=== PATIENT | male | born 2000 | race Caucasian/White ===

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

== ENCOUNTER → 2020-06-16 12:09 | Outpatient (CLI) | payer BC, SELFPAY ==
[2020-06-16 15:22] LABS: Hematocrit 50.3 % (40-54); Hemoglobin 16.3 g/dL (13.0-16.5); Mean Corp Hgb Conc 32.4 g/dL (32-36); Mean Corpuscular Volume 89.3 fL (80-94); Mean Platelet Vol. 10.6 fl (6.2-12.0); Platelet Count 198 K/mm3 (150-450); RBC Distribution Width CV 12.5 % (11.6-14.6); RBC Distribution Width SD 40.8 fl (35.1-43.9); Red Blood Count 5.63 M/mm3 (4.6-6.2); White Blood Count 5.7 K/mm3 (4.4-11.0)
[2020-06-16 15:37] LABS: ALB/GLOB Ratio 1.5 RATIO (0.9-2.4); AST(SGOT) 14 U/L (15-37); Alanine Aminotransfer ALT/SGPT 28 U/L (16-61); Albumin, Serum 4.3 g/dL (3.2-5.0); Alkaline Phosphatase 47 U/L (45-117); Anion Gap 4 (5-15); BUN 13 mg/dL (7-18); BUN/Creat Ratio 11.5 RATIO (10-20); Calcium,Total 9.4 mg/dL (8.5-10.1); Chloride 106 mmol/L (98-107); Creatinine, Serum 1.13 mg/dL (0.70-1.30); EST Glomerular Filtration Rate 88 mL/min (>60); Est Glom Filt Rate - Afr Amer 106 mL/min (>60); Globulin 2.9 g/dL (2.2-4.2); Glucose 82 mg/dL (74-106); Protein, Total 7.2 g/dL (6.4-8.2); Sodium Level 139 mmol/L (136-145)
[2020-06-16 15:39] LABS: Vitamin B12 450 pg/mL (211-911); Vitamin D,25 Hydroxy 25.3 ng/mL
== END ==
PROVIDERS: PCP Family Medicine; Visit Provider Family Medicine
DX: R10.13 Epigastric pain (principal); R53.83 Other fatigue
CPT/HCPCS: 36415; 80053; 82306; 82607; 85027

== ENCOUNTER → 2020-06-26 11:41 | Outpatient (CLI) | payer BC, SELFPAY ==
[2020-06-26 15:04] LABS: Erythrocyte Sedimentation Rate < 1 mm/hr (0-15)
[2020-06-26 15:30] LABS: Vitamin D,25 Hydroxy 24.5 ng/mL
[2020-06-26 15:56] LABS: CRP < 2.90 mg/L (0.0-3.0); Iron 139 ug/dL (65-175); Thyroid Stim Hormone (TSH) 0.83 uIU/mL (0.358-3.74)
[2020-06-30 20:07] LABS: Endomysial Antibody IgA Negative (Negative)
[2020-06-30 20:25] LABS: Deamidated Gliadin IgA 3 units (0-19); Deamidated Gliadin IgG 2 units (0-19); Immunoglobulin A 137 mg/dL (90-386); t-Transglutaminase IgA <2 U/mL (0-3)
== END ==
PROVIDERS: PCP Family Medicine; Visit Provider Family Medicine
DX: R63.4 Abnormal weight loss (principal); E55.9 Vitamin D deficiency, unspecified; R53.83 Other fatigue
CPT/HCPCS: 36415; 82306; 82784; 83516; 83540; 84443; 85652; 86140; 86255

== ENCOUNTER 2021-08-04 12:27 | Outpatient (CLI) | payer BC, SELFPAY ==
[2021-08-04 15:10] LABS: Absolute Lymphocyte Count 1.72 X10^3/uL (0.83-4.51); Basophil# 0.02 X10^3/uL; Basophil% 0.4 % (0-1); Eosinophil# 0.08 X10^3/uL; Eosinophils% 1.6 % (0-5); Hematocrit 50.6 % (40-54); Hemoglobin 16.5 g/dL (13.0-16.5); Lymphocyte # 1.72 X10^3/ul (0.83-4.51); Lymphocyte % 33.7 % (19-41); Mean Corp Hgb Conc 32.6 g/dL (32-36); Mean Corpuscular Hgb 28.7 pg (27.0-32.0); Mean Platelet Vol. 10.5 fl (6.2-12.0); Monocyte# 0.28 X10^3/uL; Monocyte% 5.5 % (0-10); NRBC Flagged by Analyzer 0 % (0-5); Neutrophil % 58.6 % (47-70); Platelet Count 224 K/mm3 (150-450); RBC Distribution Width CV 12.9 % (11.6-14.6); RBC Distribution Width SD 41.5 fl (35.1-43.9); Red Blood Count 5.75 M/mm3 (4.6-6.2); White Blood Count 5.1 K/mm3 (4.4-11.0)
[2021-08-04 15:24] LABS: ALB/GLOB Ratio 1.3 RATIO (0.9-2.4); AST(SGOT) 18 U/L (15-37); Alanine Aminotransfer ALT/SGPT 23 U/L (16-61); Albumin, Serum 4.3 g/dL (3.2-5.0); Alkaline Phosphatase 47 U/L (45-117); Anion Gap 6 (5-15); BUN 13 mg/dL (7-18); BUN/Creat Ratio 15.2 RATIO (10-20); Calcium,Total 9.6 mg/dL (8.5-10.1); Chloride 107 mmol/L (98-107); Creatinine, Serum 0.85 mg/dL (0.70-1.30); EST Glomerular Filtration Rate 120 mL/min (>60); Est Glom Filt Rate - Afr Amer 145 mL/min (>60); Globulin 3.2 g/dL (2.2-4.2); Glucose 84 mg/dL (74-106); Potassium 4.3 mmol/L (3.5-5.1); Protein, Total 7.5 g/dL (6.4-8.2); Sodium Level 140 mmol/L (136-145)
[2021-08-04 15:43] LABS: Erythrocyte Sedimentation Rate 3 mm/hr (0-20)
== END 2021-08-04 23:59 | disposition short-term general hospital (02) ==
LOC: MFPLAB 12:29
PROVIDERS: PCP Family Medicine; Referring Provider Family Medicine; Visit Provider Family Medicine
DX: K29.70 Gastritis, unspecified, without bleeding (principal)
CPT/HCPCS: 36415; 80053; 82784; 83516; 85025; 85652; 86255; 86677

== ENCOUNTER → 2021-11-25 | Outpatient (CLI) | payer BC, SELFPAY ==
[2021-11-25 15:10] LABS: Hematocrit 47.6 % (40-54); Hemoglobin 15.9 g/dL (13.0-16.5); Mean Corp Hgb Conc 33.4 g/dL (32-36); Mean Corpuscular Hgb 29.2 pg (27.0-32.0); Mean Corpuscular Volume 87.5 fL (80-94); Mean Platelet Vol. 10.2 fl (6.2-12.0); Platelet Count 193 K/mm3 (150-450); RBC Distribution Width CV 12.3 % (11.6-14.6); RBC Distribution Width SD 39.2 fl (35.1-43.9); Red Blood Count 5.44 M/mm3 (4.6-6.2); White Blood Count 5.1 K/mm3 (4.4-11.0)
[2021-11-25 15:36] LABS: ALB/GLOB Ratio 1.3 RATIO (0.9-2.4); AST(SGOT) 13 U/L (15-37); Alanine Aminotransfer ALT/SGPT 21 U/L (16-61); Albumin, Serum 3.9 g/dL (3.2-5.0); Alkaline Phosphatase 40 U/L (45-117); Anion Gap 3 (5-15); BUN 13 mg/dL (7-18); BUN/Creat Ratio 14.7 RATIO (10-20); Calcium,Total 8.5 mg/dL (8.5-10.1); Chloride 107 mmol/L (98-107); Creatinine, Serum 0.89 mg/dL (0.70-1.30); EST Glomerular Filtration Rate 115 mL/min (>60); Est Glom Filt Rate - Afr Amer 139 mL/min (>60); Glucose 71 mg/dL (74-106); Potassium 3.9 mmol/L (3.5-5.1); Protein, Total 6.9 g/dL (6.4-8.2); Sodium Level 139 mmol/L (136-145)
== END | disposition home or self-care (01) ==
LOC: MFPLAB 14:03
PROVIDERS: PCP Family Medicine; Referring Provider Family Medicine; Visit Provider Nurse Practitioner Family
DX: R42 Dizziness and giddiness (principal)
CPT/HCPCS: 36415; 80053; 85027

== ENCOUNTER → 2021-11-26 | Outpatient (CLI) | payer BC, SELFPAY ==
[2021-11-26 15:29] LABS: ALB/GLOB Ratio 1.2 RATIO (0.9-2.4); AST(SGOT) 12 U/L (15-37); Alanine Aminotransfer ALT/SGPT 23 U/L (16-61); Alkaline Phosphatase 43 U/L (45-117); Anion Gap 3 (5-15); BUN 16 mg/dL (7-18); BUN/Creat Ratio 15.8 RATIO (10-20); Chloride 108 mmol/L (98-107); Creatinine, Serum 1.01 mg/dL (0.70-1.30); EST Glomerular Filtration Rate 99 mL/min (>60); Est Glom Filt Rate - Afr Amer 119 mL/min (>60); Globulin 3.2 g/dL (2.2-4.2); Glucose 94 mg/dL (74-106); Potassium 3.8 mmol/L (3.5-5.1); Protein, Total 7.2 g/dL (6.4-8.2); Sodium Level 140 mmol/L (136-145)
== END | disposition home or self-care (01) ==
PROVIDERS: PCP Family Medicine; Referring Provider Family Medicine; Visit Provider Nurse Practitioner Family
DX: R17 Unspecified jaundice (principal)
CPT/HCPCS: 36415; 80053

== ENCOUNTER 2022-06-12 16:53 | Emergency (ER) | payer OTHER, BC, SELFPAY ==
[2022-06-12 16:53] VITALS: BP 155/93; PULSE 90; RESP 18; TEMP 36.2; O2SAT 99; BMI 23.6
--- NOTE | 2022-06-12 17:11 | EX.ED.GENINJ ---
HPI History of Present Illness Chief Complaint: Occup Expose Narrative Narrative: 21-year-old male who is otherwise healthy presenting with insulin needlestick which occurred at the [facility]. He states that he was intermittently poked with the insulin needle. He does not know if the inmate has any medical problems other than diabetes. He states that the nurse at the [facility] supposed to draw his blood work tomorrow. He does not have any pain. He is right-hand dominant. PFSH PFS Medical History Stomach ulcer Home Medications NK 06/12/22 [History Last Taken Unknown] Allergy/AdvReac Type Severity Reaction Status Date / Time No Known Allergies Allergy Verified 06/12/22 16:55 Surgical History History of appendectomy Social History Smoking Status: Current every day smoker tobacco type: e-cigarettes ROS ROS ED Constitutional Constitutional ED: Denies chills, fever(s) or sweats Eyes Eyes: Denies blurry vision or change in vision ENT ENT ED: Denies ear pain or sore throat Cardiovascular Cardiovascular: Denies chest pain, palpitations or racing heartbeat Respiratory/Chest Respiratory/Chest: Denies cough, dyspnea or sputum Gastrointestinal Gastrointestinal: Denies abdominal pain, constipation, diarrhea, nausea or vomiting Genitourinary Genitourinary ED: Denies dysuria, hematuria or urinary frequency Musculoskeletal Musculoskeletal: Denies arthralgias, myalgias or neck pain Integumentary Denies abscess, Abrasions or rash Neurologic Neurologic: Denies headache(s), paresthesias or weakness Psychiatric Psychiatric: Denies anxiety, depression, suicidal ideation or suicidal thoughts Endocrine Endocrinology: Denies polydipsia or polyuria EXAM Physical Exam Const Vital Signs: 06/12/22 16:53 Temperature 97.1 F L Temperature Source Temporal Pulse Rate 90 Respiratory Rate 18 Blood Pressure 155/93 H Blood Pressure Mean 113 Pulse Ox 99 Oxygen Delivery Method Room Air Positive well nourished General Appearance ED: NAD HEENT atraumatic Eyes PERRL and EOMs intact bilaterally Resp normal respiratory effort Auscultation: Negative for rales, rhonchi or wheezes Extremity normal to inspection Neuro oriented x3 and CN's II-XII intact bilaterally Sensorium / Orientation: alert Psych mental status grossly normal and thought process normal Skin no rashes or lesions noted and no wounds MDM MDM MDM Narrative Medical decision making narrative: Patient presenting with needlestick. Appropriate lab was drawn. First report of injury is filled out. Patient does not require any restrictions. Patient states that the nurse at the [facility] will draw the inmates blood tomorrow. Patient discharged stable condition. Impression: 1. Needlestick Discharge Plan Triage Chief Complaint: Occup Expose ED Provider: Ashwin Oliver Dx/Rx/DC Orders Prescriptions: No Action NK Primary Care Provider: Jacob Beltrán Referrals: Jacob Beltrán MD [Primary Care Provider] -
[2022-06-12 19:15] LABS: HIV - WCH Non-Reactive (Nonreactive); Hepatitis B Surface Antibody Non-Reactive; Hepatitis B Surface Antigen Non-Reactive (Nonreactive); Hepatitis C Antibody Non-Reactive (Nonreactive)
== END 2022-06-12 17:44 | disposition home or self-care (01) ==
LOC: ED 17:38
PROVIDERS: Emergency Provider Student in an Organized Health Care Education/Training Program; PCP Family Medicine; Visit Provider Student in an Organized Health Care Education/Training Program
DX: Z77.21 Contact with and (suspected) exposure to potentially hazardous body fluids (principal); F17.290 Nicotine dependence, other tobacco product, uncomplicated; W46.1XXA Contact with contaminated hypodermic needle, initial encounter
CPT/HCPCS: 86703; 86706; 86803; 87340; 99282

== ENCOUNTER → 2023-02-24 | Outpatient (CLI) | payer BC, SELFPAY ==
--- NOTE | 2023-02-24 15:00 | RAD_ITS ---
INDICATION: pain EXAMINATION/TECHNIQUE: X-RAY - LEFT XR Knee Complete 4 Views COMPARISON: FINDINGS: SOFT TISSUES: No soft tissue swelling or gas. No radiopaque foreign body. BONES/JOINTS: No acute fracture or subluxation.. Normal alignment. Preservation of the joint space.. No sclerotic or destructive changes observed. RAD/Knee 4 or More Views IMPRESSION: Negative. Electronically Signed: Sriram Sargent DO at 23:50 EDT ,
== END | disposition home or self-care (01) ==
LOC: MTRAD 14:52
PROVIDERS: PCP Family Medicine; Visit Provider Family Medicine
DX: M25.562 Pain in left knee (principal)
CPT/HCPCS: 73564

== ENCOUNTER 2023-06-05 18:29 | Emergency (ER) | payer OTHER, SELFPAY ==
[2023-06-05 18:31] VITALS: BP 125/94; PULSE 118; RESP 18; TEMP 37; O2SAT 98; BMI 24.6
--- NOTE | 2023-06-05 19:10 | RAD_ITS ---
EXAM: XR LEFT KNEE COMPLETE, 4 OR MORE VIEWS CLINICAL INDICATION: Trauma TECHNIQUE: Four or more views of the left knee. COMPARISON: No relevant prior studies available. FINDINGS: BONES/JOINTS: Unremarkable. No acute fracture. No subluxation. Normal alignment. Preservation of the joint space. No sclerotic or destructive changes observed. SOFT TISSUES: Unremarkable. No soft tissue swelling or gas. No radiopaque foreign body. RAD/Knee 4 or More Views IMPRESSION: Negative left knee x-rays. Electronically Signed: Jorge Morales MD at 19:38 EST ,
--- NOTE | 2023-06-05 20:36 | ED.VIS.LOWEX ---
HPI History of Present Illness Chief Complaint: Lower Extremity Injury Informant: patient Narrative Narrative: Patient presents with left knee pain. Patient has been having some problems with his left knee. He has a meniscal tear in the anterior lateral aspect of the left knee. An MRI. He had a recent cortisone injection and has follow-up with orthopedics in the next week or 2. 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 She crossed her legs in front of his and then rotated his left leg inward. He felt a pop in the knee and has increased pain. It is in the same area that he has been having pain but it is increased. No other injury. [facility] Medical History Stomach ulcer Home Medications NK 06/12/22 [History Last Taken Unknown] Allergy/AdvReac Type Severity Reaction Status Date / Time No Known Allergies Allergy Verified 06/05/23 18:30 Surgical History History of appendectomy Social History Smoking Status: Current every day smoker tobacco type: e-cigarettes ROS ROS ED Constitutional Constitutional ED: Denies chills or fever(s) Cardiovascular Cardiovascular: Denies chest pain Respiratory/Chest Respiratory/Chest: Denies cough Gastrointestinal Gastrointestinal: Denies nausea or vomiting Musculoskeletal Musculoskeletal: Reports arthralgias Neurologic Neurologic: Denies paresthesias or weakness Hematologic/Lymphatic Hematologic/Lymphatic: Denies easy bleeding or easy bruising Allergic/Immunologic Allergic/Immunologic ED: Denies urticaria EXAM Physical Exam Narrative Exam Narrative: General: Patient awake alert no acute distress. HEENT shows no sign of trauma Cardiorespiratory shows easy unlabored breathing. Extremities: Left knee does not have an effusion. There is some anterior lateral joint line tenderness though. It is stable to varus valgus as well as drawer exam. It is not red. There are no lesions. Const Vital Signs: 06/05/23 18:31 Temperature 98.6 F Temperature Source Temporal Pulse Rate 118 H Respiratory Rate 18 Blood Pressure 125/94 H Blood Pressure Mean 104 Pulse Ox 98 Oxygen Delivery Method Room Air MDM MDM MDM Narrative Medical decision making narrative: My independent interpretation of the patient's 4 view x-ray of the left knee shows no acute process and final reading is negative left knee x-rays. However, this patient does have a known meniscal injury with likely repeat irritation. I do not think he should be using this significantly. He has follow-up with orthopedics. They are considering surgery for this area. He is going to call his orthopedic surgeon on Tuesday so he can get in sooner. We will have him on light duty until then to avoid doing further injury to this knee. Radiography Diagnostic Testing: Clinical Impression(s) from Imaging Studies Knee X-Ray 06/05/23 19:10 IMPRESSION: Negative left knee x-rays. Electronically Signed: Jorge Morales MD at 19:38 EST , Discharge Plan Triage Chief Complaint: Lower Extremity Injury ED Provider: Ladarius Nicole Dx/Rx/DC Orders Clinical Impression: Acute internal derangement of left knee, Tear of lateral meniscus of left knee Instructions: ED Meniscal Injury Knee Poss Prescriptions: No Action NK Stand Alone Forms: Work Status Form Primary Care Provider: Jacob Beltrán Referrals: Jacob Beltrán MD [Primary Care Provider] - As Needed Activity Restrictions/Additional Instructions: Follow-up with your orthopedic surgeon as soon as possible. Call Tuesday for an appointment. Disposition Disposition: Home, Self Care
--- NOTE | 2023-06-05 20:46 | ED.RN ---
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
== END 2023-06-05 20:47 | disposition home or self-care (01) ==
PROVIDERS: Emergency Provider Emergency Medicine; PCP Family Medicine; Visit Provider Emergency Medicine
DX: M23.92 Unspecified internal derangement of left knee (principal); S83.282A Other tear of lateral meniscus, current injury, left knee, initial encounter; F17.290 Nicotine dependence, other tobacco product, uncomplicated; X58.XXXA Exposure to other specified factors, initial encounter
CPT/HCPCS: 73564; 99282

== ENCOUNTER 2023-07-21 11:19 | Day surgery (SDC) | payer OTHER, BC, SELFPAY ==
[2023-07-21] VITALS (8 sets, daily range): BP systolic 106–123; BP diastolic 71–87; PULSE 70–91; RESP 16; TEMP 36.6–36.8; O2SAT 97–100; BMI 24.5
[2023-07-21] MEDS: Lactated Ringers 1,000 ML 15 ML IV (11:44)
--- OUTSIDE RECORDS SUMMARY | 2023-07-21 11:58 | XMS RPT_ITS | CCD ---
Author Name Unknown Address [address] [place] [address] Organization [facility] Care Team Providers Care Director Sales Support Name Role Phone LAURA KLINE Unavailable Unavailable MAREN HAMMER Unavailable Unavailable MAREN HAMMER Unavailable Unavailable ERIKA, DR CHIP Snyder Admitting Unavaila ble ERIKA, DR CHIP Snyder Primary Care Unavaila ble ERIKA, DR CHIP Snyder Attending Unavaila ble ERIKA, DR CHIP Snyder Admitting Unavaila ble ERIKA, DR CHIP Snyder Primary Care Unavaila ble ERIKA, DR CHIP Snyder Attending Unavaila ble ERIKA, DR CHIP Snyder Primary Care Unavaila ble ERIKA, DR CHIP Snyder Attending Unavaila ble ERIKA, DR CHIP Snyder Admitting Unavaila ble NON STAFF Primary Care Provider UnavailMD Maciel Calhoun Emergency Provider Maciel Tello Attending Unavailable Maciel Tello Admitting Unavailable NON STAFF Primary Care Unavailable MAME BARDALES, DR LAINEZ Primary Care Physician MAME BARDALES, DR LAINEZ Primary Care Unavailable [facility] DO Attending Unavailable Manasa Vilchis Primary Care Provider MANASA VILCHIS Primary Care Unavailable MANASA VILCHIS Primary Care Unavailable MANASA VILCHIS Primary Care Unavailable Medications Current Medications Medication Drug Class(es) Dates Sig (Normalized) Sig (Original) benzonatate 100 mg oral capsule (1 source) Non-narcotic Antitussive Start: 07-07-2023 End: 07-14-2023 take 1 capsule by mouth every eight hours as needed benzonatate (TESSALON PERLE) 100 mg capsule Take 1 capsule by mouth three times a day as needed for cough for up to 7 days. 21 capsule 0 07/07/2023 07/14/2023 Active Completed/Discontinued Medications Medication Drug Class(es) Dates Sig (Normalized) Sig (Original) [id number] 200 actuat albuterol 0.09 mg/actuat metered dose inhaler (2 sources) beta2-Adrenergic Agonist Start: 07-07-2023 take 2 puff(s) by inhalation every six hours as needed albuterol HFA (PROAIR HFA) 90 mcg/actuation inhaler Inhale 2 Puffs as instructed every 6 hours as needed. 8.5 g 0 07/07/2023 Active Problems Active Problems Problem Classification Problem Date Documented Da te Episodic/Chronic Abdominal pain (1 source) Abdominal pain; Translations: [Unspecified abdominal pain] Onset: 10-09-2022 Episodic Asthma (1 source) Asthma 2015 Chronic Conditions associated with dizziness or vertigo (1 source) Dizziness; Translations: [Dizziness and giddiness] 11-22-2021 Episodic Conditions associated with dizziness or vertigo (1 source) Conditions associated with dizziness or vertigo; Translations: [R42 - Dizziness and giddiness] Onset: 11-22-2021 Nausea and vomiting (1 source) Nausea and vomiting; Translations: [Nausea with vomiting, unspecified] Onset: 10-09-2022 Episodic Other nervous system disorders (1 source) Paresthesia; Translations: [Paresthesia of skin] 11-22-2021 Episodic Other upper respiratory infections (2 sources) Viral upper respiratory tract infection; Translations: [Acute upper respiratory infection, unspecified] 07-05-2023 Episodic Past or Other Problems Problem Classification Problem Date Documented Da te Episodic/Chronic Other and unspecified benign neoplasm (4 sources) Benign tumor of head and neck; Translations: [Other benign neoplasm of skin of scalp and neck] Onset: 01-26-2006 01-26-2006 Episodic Results Test Name Value Interpretation Reference Range Facil ity Vital Signs Date Time Vital Sign Value Performing Clinician Facility 07-07-2023 09:58-0500 Body temperature 98.2 [degF] Peter Flowers APRN.CNP Work Phone: [facility] 07-07-2023 09:58-0500 Body weight 72.67 kg Peter Flowers APRN.CNP Work Phone: [facility] 07-07-2023 09:58-0500 Diastolic blood pressure 82 mm[Hg] Peter Pendlebury LOAD OUT SUPERVISOR.[employer] Work Phone: [facility] 07-07-2023 09:58-0500 Heart rate 86 /min Peter Pendlebury LOAD OUT SUPERVISOR.[employer] Work Phone: [facility] 07-07-2023 09:58-0500 Respiratory rate 16 /min Peter Pendlebury LOAD OUT SUPERVISOR.[employer] Work Phone: [facility] 07-07-2023 09:58-0500 SaO2% (BldA) [Mass fraction] 97 % [facility].[employer] Work Phone: [facility] 07-07-2023 09:58-0500 Systolic blood pressure 128 mm[Hg] Peter Pendlebury LOAD OUT SUPERVISOR.[employer] Work Phone: [facility] 07-05-2023 12:06-0500 Body temperature 98.8 [degF] Ivette Athy PA-C Work Phone: [facility] 07-05-2023 12:06-0500 Body weight 73.03 kg Ivette Athy PA-C Work Phone: [facility] 07-05-2023 12:06-0500 Diastolic blood pressure 64 mm[Hg] Ivette Athy PA-C Work Phone: [facility] 07-05-2023 12:06-0500 Heart rate 102 /min Ivette Athy PA-C Work Phone: [facility] 07-05-2023 12:06-0500 Respiratory rate 18 /min Ivette Athy PA-C Work Phone: [facility] 07-05-2023 12:06-0500 SaO2% (BldA) [Mass fraction] 96 % Ivette Athy PA-C Work Phone: [facility] 07-05-2023 12:06-0500 Systolic blood pressure 118 mm[Hg] Ivette Athy PA-C Work Phone: [facility] 10-09-2022 01:08-0400 Diastolic Blood Pressure Non-Invasive 62 1 MAREN SWEENEYT DO [facility] 10-09-2022 01:08-0400 Heart rate 72 /min MAREN SWEENEYT DO [facility] 10-09-2022 01:08-0400 Respiratory rate 16 /min MAREN SWEENEYT DO [facility] 10-09-2022 01:08-0400 Systolic Blood Pressure Non-Invasive 110 1 MAREN SWEENEYT DO [facility] 10-08-2022 23:01-0400 Body temperature 98.78 [degF] MAREN SWEENEYT DO [facility] 10-08-2022 23:01-0400 Diastolic Blood Pressure Non-Invasive 61 1 MAREN SWEENEYT DO [facility] 10-08-2022 23:01-0400 Heart rate 112 /min MAREN DANIELS DO [facility] 10-08-2022 23:01-0400 Respiratory rate 18 /min MAREN DANIELS DO [facility] 10-08-2022 23:01-0400 Systolic Blood Pressure Non-Invasive 105 1 MAREN DANIELS DO [facility] 11-22-2021 17:00-0400 Diastolic blood pressure 61 mm[Hg] [facility] 11-22-2021 17:00-0400 Heart rate 81 /min [facility] 11-22-2021 17:00-0400 Respiratory rate 20 /min [facility] 11-22-2021 17:00-0400 SaO2% (BldA) [Mass fraction] 100 % [facility] 11-22-2021 17:00-0400 Systolic blood pressure 106 mm[Hg] [facility] 11-22-2021 14:42-0400 Body height 172.72 cm [facility] 11-22-2021 14:42-0400 Body mass index (BMI) [Ratio] 23.4 kg/m2 [facility] 11-22-2021 14:42-0400 Body temperature 97.9 [degF] [facility] 11-22-2021 14:42-0400 Body weight 69.85 kg [facility] Encounters Encounter Date Encounter Type Care Provider Facility Start: 07-07-2023 End: 07-07-2023 ambulatory MANASA VILCHIS Facility:[facility] Start: 07-07-2023 End: 07-07-2023 Office outpatient visit 15 minutes Peter Flowers APRN.[employer] Work Phone: [facility] Procedures Date Procedure Procedure Detail Performing Clinician Start: 07-05-2023 STREP A MOLECULAR (POC) [facility] Provider Start: 11-22-2021 CT of head without contrast Start: 11-22-2021 Plain chest X-ray Appendectomy MAREN Catherine DO None (qualifier value) SEDRICK DANIELS DO Plan of Treatment Date Care Activity Detail Author Start: 08-07-2029 Urine microalbumin profile DTaP,Tdap,Td Vaccine (3 - Td or Tdap) [facility] Start: 03-25-2023 Covid-19 Vaccine ( season) Covid-19 Vaccine ( season) [facility] Start: 03-25-2023 Influenza vaccination [facility] Start: 07-25-2022 DEPRESSION ASSESSMENT DEPRESSION ASSESSMENT [facility] Start: 01-20-2021 COVID-19 VACCINE (3 - Pfizer series) COVID-19 VACCINE (3 - Pfizer series) [facility] Start: 2019 Urine microalbumin profile DTAP,TDAP,TD (1 - Tdap) [facility] Start: 2018 HEPATITIS C SCREENING HEPATITIS C SCREENING [facility] Start: 2018 Hepatitis C screening Hepatitis C Screening [facility] Start: 2018 HIV SCREENING HIV SCREENING [facility] Start: 2018 HIV screening HIV Screening [facility] Start: 03-21-2018 HPV Vaccine (2 - Male 3-dose series) HPV Vaccine (2 - Male 3-dose series) [facility] Start: 2016 Meningococcal B Vaccine: Consider Based On Risk (1 of 2 - Patient Seeks Protection) Meningococcal B Vaccine: Consider Based On Risk (1 of 2 - Patient Seeks Protection) [facility] Start: 2016 MENINGOCOCCAL B: Consider based on risk (1 of 2 - Patient Seeks Protection) MENINGOCOCCAL B: Consider based on risk (1 of 2 - Patient Seeks Protection) [facility] Start: 2014 PEDS TO ADULT TRANSITION ANNUAL ASSESSMENT PEDS TO ADULT TRANSITION ANNUAL ASSESSMENT [facility] Start: 2012 PEDS TO ADULT TRANSITION INITIAL DISCUSSION PEDS TO ADULT TRANSITION INITIAL DISCUSSION [facility] Start: 2009 HPV VACCINE (1 - Male 2-dose series) HPV VACCINE (1 - Male 2-dose series) [facility] Start: 2006 PNEUMOCOCCAL (1 - PCV) PNEUMOCOCCAL (1 - PCV) [facility] Start: 2006 Pneumococcal vaccination Pneumococcal Vaccine (1 - PCV) [facility] Start: 2000 HEPATITIS B (1 of 3 - 3-dose series) HEPATITIS B (1 of 3 - 3-dose series) [facility] Start: 2000 Hepatitis B Vaccine (1 of 3 - 3-dose series) Hepatitis B Vaccine (1 of 3 - 3-dose series) [facility] COVID & INFLUENZA A/ B & RSV NAAT, ROUTINE COVID & INFLUENZA A/B & RSV NAAT, ROUTINE Microbiology Routine Viral URI with cough 07/05/2023 1:00 PM EST [facility] Work Phone: Patient Education Paresthesia (D C) Dizziness, Adult ED [facility] Work Phone: Patient referral [facility] Work Phone: Immunizations Immunization Date Immunization Notes Care Provider Fa cility 05-17-2019 influenza virus vacc ine, unspecified formulation Ivette Farah PA-C Work Phone: [facility] Payers Date Payer Category Payer Self-pay [id number] 2020 Unknown [id number] 2020 Unknown [id number] 2000 Unknown [id number] 2000 Unknown [id number] 2000 Unknown [id number] 2000 Unknown [id number] Unknown [id number] Unknown [id number] Social History Date Type Detail Facility Start: 11-22-2021 Tobacco smoking stat [facility] Smoker (finding) [facility] Start: 2000 Sex Assigned At Male F [facility] Start: 11-26-2020 Tobacco smoking status Never s moked tobacco (finding) [facility] Sex Assigned At Sex [facility] Start: 03-28-2023 [facility] Start: 03-28-2023 Tobacco use and exposure User of smokeless tobacco [facility] Start: 03-28-2023 End: 07-07-2023 Alcohol intake Current non-drinker of alcohol (finding) [facility] Start: 06-29-2020 End: 03-28-2023 History of Social function [facility] Start: 06-29-2020 End: 03-28-2023 Tobacco use panel [facility] National Score (1-100), lower number is lower risk Not on file [facility] Start: 2000 Sex Assigned At Not on file C [facility] Functional Status Date Assessment Result Facility 10-09-2022 Functional Status Assistive Device None A [facility] Clinical Notes 10-09-2022 to 07-07-2023 Peter Flowers APRN.[employer] - 07/07/2023 10:45 AM Peter Torres APRN.CNP - 07/07/2023 10:25 AM ESTTelephone Encounter - Marge Thomas LPN - 07/06/2023 7:30 AM EST Note Date & Type Note Facility 07-07-2023 Note HNO ID: [id number] Author: Peter Flowers APRN.[employer] Service: ? Author Type: Nurse Practitioner Type: Progress Notes Filed: 07/07/2023 10:46 AM Note Text: Subjective HPI Nontoxic-appearing male presents to urgent care with chief complaint of upper respiratory tract like infection. Duration of symptoms 4 days. Associated symptoms sore throat, nasal congestion, nasal discharge and nonproductive cough. Some shortness of breath only with coughing. Was seen here 2 days ago. Negative influenza COVID test. Presents today due to persistent symptoms. Has used OTC medications to help some. Or home remedies for symptom management. Patient states recent sick contacts with similar signs and symptoms. Patient denies any productive cough, fever, chest pain, shortness of breath, pleuritic pain, rash, abdominal pain, nausea, vomiting or change in bowel or bladder habit. Past medical history prescription medication use allergies reviewed. .Patient presents with: Cough: Cough, congestion and SOB x 2 days-started with sx 4 days ago History reviewed. No pertinent past medical history. PAST SURGICAL HISTORY Procedure Laterality Date MYRINGOTOMY ASPIRAND/EUSTACHIAN TUBE NFLTJ ANES Myringotomy/tubes TONSILLECTOMY PRIMARY/SECONDARY Tonsillectomy ALLERGIES Patient has no known allergies. MEDICATIONS sucralfate (CARAFATE) 1 gram tablet pantoprazole sodium (PROTONIX ORAL) Take by mouth. benzonatate (TESSALON PERLE) 100 mg capsule Take 1 capsule by mouth three times a day as needed for cough for up to 7 days. albuterol HFA (PROAIR HFA) 90 mcg/actuation inhaler Inhale 2 Puffs as instructed every 6 hours as needed. guaiFENesin (MUCINEX) 600 mg 12 hr tablet Take 1 tablet by mouth two times a day as needed for cold/allergy symptoms (cough) for up to 7 days. History reviewed. No pertinent family history. Social History Tobacco Use Smoking status: Light Smoker Smokeless tobacco: Current Vaping Use Vaping Use: Never used Substance Use Topics Alcohol use: No Drug use: No BP 128/82 Pulse 86 Temp 36.8 ?C (98.2 ?F) (Tympanic) Resp 16 Wt 72.7 kg (160 lb 3.2 oz) SpO2 97% Review of Systems Constitutional: Positive for malaise/fatigue. Negative for chills and fever. HENT: Positive for congestion, sinus pain and sore throat. Negative for ear discharge and ear pain. Eyes: Negative for blurred vision, pain, discharge and redness. Respiratory: Positive for cough. Negative for hemoptysis, sputum production, shortness of breath, wheezing and stridor. Cardiovascular: Negative for chest pain. Gastrointestinal: Negative for abdominal pain, diarrhea, nausea and vomiting. Musculoskeletal: Positive for myalgias. Skin: Negative for itching and rash. Neurological: Positive for headaches. Negative for dizziness. Objective Physical Exam Constitutional: General: He is not in acute distress. Appearance: He is not diaphoretic. HENT: Head: Normocephalic. Jaw: No trismus, tenderness, swelling or pain on movement. Nose: Congestion present. Mouth/Throat: Mouth: Mucous membranes are moist. Pharynx: Oropharynx is clear. Uvula midline. No pharyngeal swelling, oropharyngeal exudate, posterior oropharyngeal erythema or uvula swelling. Eyes: Conjunctiva/sclera: Conjunctivae normal. Pupils: Pupils are equal, round, and reactive to light. Cardiovascular: Rate and Rhythm: Normal rate and regular rhythm. Heart sounds: Normal heart sounds. Pulmonary: Effort: Pulmonary effort is normal. No tachypnea, accessory muscle usage or respiratory distress. Breath sounds: Normal breath sounds. No stridor. No wheezing, rhonchi or rales. Abdominal: General: There is no distension. Palpations: Abdomen is soft. Tenderness: There is no abdominal tenderness. There is no guarding or rebound. Musculoskeletal: Cervical back: Normal range of motion and neck supple. No edema, erythema, rigidity or tenderness. No pain with movement. Normal range of motion. Lymphadenopathy: Cervical: No cervical adenopathy. Skin: General: Skin is warm and dry. Neurological: Mental Status: He is alert and oriented to person, place, and time. ASSESSMENT/PLAN: 1. Viral URI with cough - ICD9: 465.9, ICD10: J06.9 - Discussed viral etiology and rationale for treatment. - Symptomatic treatment with prn analgesia - Supportive care with fluids and rest No evidence of bacterial infection noted. Patient was educated on supportive therapies. Patient will follow up with primary care provider as needed. Patient was instructed to immediately proceed to emergency room for any new, worsening, or symptoms lasting longer than anticipated. The patient's clinical presentation is otherwise unremarkable at this time. Based on exam and clinical finding, the patient is stable for discharge. Plan of care was discussed with patient. Patient verbalizes understanding and agrees to plan of care. This note was (more content not included)... [facility] 07-07-2023 Note HNO ID: [id number] Author: Peter Flowers APRN.[employer] Service: ? Author Type: Nurse Practitioner Type: Progress Notes Filed: 07/07/2023 10:46 AM Note Text: Subjective HPI Nontoxic-appearing male presents to urgent care with chief complaint of upper respiratory tract like infection. Duration of symptoms 4 days. Associated symptoms sore throat, nasal congestion, nasal discharge and nonproductive cough. Some shortness of breath only with coughing. Was seen here 2 days ago. Negative influenza COVID test. Presents today due to persistent symptoms. Has used OTC medications to help some. Or home remedies for symptom management. Patient states recent sick contacts with similar signs and symptoms. Patient denies any productive cough, fever, chest pain, shortness of breath, pleuritic pain, rash, abdominal pain, nausea, vomiting or change in bowel or bladder habit. Past medical history prescription medication use allergies reviewed. .Patient presents with: Cough: Cough, congestion and SOB x 2 days-started with sx 4 days ago History reviewed. No pertinent past medical history. PAST SURGICAL HISTORY Procedure Laterality Date MYRINGOTOMY ASPIRAND/EUSTACHIAN TUBE NFLTJ ANES Myringotomy/tubes TONSILLECTOMY PRIMARY/SECONDARY Tonsillectomy ALLERGIES Patient has no known allergies. MEDICATIONS sucralfate (CARAFATE) 1 gram tablet pantoprazole sodium (PROTONIX ORAL) Take by mouth. History reviewed. No pertinent family history. Social History Tobacco Use Smoking status: Light Smoker Smokeless tobacco: Current Vaping Use Vaping Use: Never used Substance Use Topics Alcohol use: No Drug use: No BP 128/82 Pulse 86 Temp 36.8 ?C (98.2 ?F) (Tympanic) Resp 16 Wt 72.7 kg (160 lb 3.2 oz) SpO2 97% Review of Systems Constitutional: Positive for malaise/fatigue. Negative for chills and fever. HENT: Positive for congestion, sinus pain and sore throat. Negative for ear discharge and ear pain. Eyes: Negative for blurred vision, pain, discharge and redness. Respiratory: Positive for cough. Negative for hemoptysis, sputum production, shortness of breath, wheezing and stridor. Cardiovascular: Negative for chest pain. Gastrointestinal: Negative for abdominal pain, diarrhea, nausea and vomiting. Musculoskeletal: Positive for myalgias. Skin: Negative for itching and rash. Neurological: Positive for headaches. Negative for dizziness. Objective Physical Exam Constitutional: General: He is not in acute distress. Appearance: He is not diaphoretic. HENT: Head: Normocephalic. Jaw: No trismus, tenderness, swelling or pain on movement. Nose: Congestion present. Mouth/Throat: Mouth: Mucous membranes are moist. Pharynx: Oropharynx is clear. Uvula midline. No pharyngeal swelling, oropharyngeal exudate, posterior oropharyngeal erythema or uvula swelling. Eyes: Conjunctiva/sclera: Conjunctivae normal. Pupils: Pupils are equal, round, and reactive to light. Cardiovascular: Rate and Rhythm: Normal rate and regular rhythm. Heart sounds: Normal heart sounds. Pulmonary: Effort: Pulmonary effort is normal. No tachypnea, accessory muscle usage or respiratory distress. Breath sounds: Normal breath sounds. No stridor. No wheezing, rhonchi or rales. Abdominal: General: There is no distension. Palpations: Abdomen is soft. Tenderness: There is no abdominal tenderness. There is no guarding or rebound. Musculoskeletal: Cervical back: Normal range of motion and neck supple. No edema, erythema, rigidity or tenderness. No pain with movement. Normal range of motion. Lymphadenopathy: Cervical: No cervical adenopathy. Skin: General: Skin is warm and dry. Neurological: Mental Status: He is alert and oriented to person, place, and time. ASSESSMENT/PLAN: 1. Viral URI with cough - ICD9: 465.9, ICD10: J06.9 - Discussed viral etiology and rationale for treatment. - Symptomatic treatment with prn analgesia - Supportive care with fluids and rest Patient was educated on supportive therapies. Patient will follow up with primary care provider as needed. Patient was instructed to immediately proceed to emergency room for any new, worsening, or symptoms lasting longer than anticipated. The patient's clinical presentation is otherwise unremarkable at this time. Based on exam and clinical finding, the patient is stable for discharge. Plan of care was discussed with patient. Patient verbalizes understanding and agrees to plan of care. This note was generated using milog software. It may contain errors in wording, punctuation, or spelling. Peter Flowers APRN.[facility] 07-07-2023 History of Presen t illness Narrative Subjective HPI Nontoxic-appearing male presents to urgent care with chief complaint of upper respiratory tract like infection. Duration of symptoms 4 days. Associated symptoms sore throat, nasal congestion, nasal discharge and nonproductive cough. Some shortness of breath only with coughing. Was seen here 2 days ago. Negative influenza COVID test. Presents today due to persistent symptoms. Has used OTC medications to help some. Or home remedies for symptom management. Patient states recent sick contacts with similar signs and symptoms. Patient denies any productive cough, fever, chest pain, shortness of breath, pleuritic pain, rash, abdominal pain, nausea, vomiting or change in bowel or bladder habit. Past medical history prescription medication use allergies reviewed. .Patient presents with: Cough: Cough, congestion and SOB x 2 days-started with sx 4 days ago History reviewed. No pertinent past medical history. PAST SURGICAL HISTORY Procedure Laterality Date MYRINGOTOMY ASPIR&/EUSTACHIAN TUBE NFLTJ ANES Myringotomy/tubes TONSILLECTOMY PRIMARY/SECONDARY <AGE 12 Tonsillectomy ALLERGIES Patient has no known allergies. MEDICATIONS sucralfate (CARAFATE) 1 gram tablet pantoprazole sodium (PROTONIX ORAL) Take by mouth. benzonatate (TESSALON PERLE) 100 mg capsule Take 1 capsule by mouth three times a day as needed for cough for up to 7 days. albuterol HFA (PROAIR HFA) 90 mcg/actuation inhaler Inhale 2 Puffs as instructed every 6 hours as needed. guaiFENesin (MUCINEX) 600 mg 12 hr tablet Take 1 tablet by mouth two times a day as needed for cold/allergy symptoms (cough) for up to 7 days. History reviewed. No pertinent family history. Social History Tobacco Use Smoking status: Light Smoker Smokeless tobacco: Current Vaping Use Vaping Use: Never used Substance Use Topics Alcohol use: No Drug use: No BP 128/82 Pulse 86 Temp 36.8 C (98.2 F) (Tympanic) Resp 16 Wt 72.7 kg (160 lb 3.2 oz) SpO2 97% Review of Systems Constitutional: Positive for malaise/fatigue. Negative for chills and fever. HENT: Positive for congestion, sinus pain and sore throat. Negative for ear discharge and ear pain. Eyes: Negative for blurred vision, pain, discharge and redness. Respiratory: Positive for cough. Negative for hemoptysis, sputum production, shortness of breath, wheezing and stridor. Cardiovascular: Negative for chest pain. Gastrointestinal: Negative for abdominal pain, diarrhea, nausea and vomiting. Musculoskeletal: Positive for myalgias. Skin: Negative for itching and rash. Neurological: Positive for headaches. Negative for dizziness. Objective Physical Exam Constitutional: General: He is not in acute distress. Appearance: He is not diaphoretic. HENT: Head: Normocephalic. Jaw: No trismus, tenderness, swelling or pain on movement. Nose: Congestion present. Mouth/Throat: Mouth: Mucous membranes are moist. Pharynx: Oropharynx is clear. Uvula midline. No pharyngeal swelling, oropharyngeal exudate, posterior oropharyngeal erythema or uvula swelling. Eyes: Conjunctiva/sclera: Conjunctivae normal. Pupils: Pupils are equal, round, and reactive to light. Cardiovascular: Rate and Rhythm: Normal rate and regular rhythm. Heart sounds: Normal heart sounds. Pulmonary: Effort: Pulmonary effort is normal. No tachypnea, accessory muscle usage or respiratory distress. Breath sounds: Normal breath sounds. No stridor. No wheezing, rhonchi or rales. Abdominal: General: There is no distension. Palpations: Abdomen is soft. Tenderness: There is no abdominal tenderness. There is no guarding or rebound. Musculoskeletal: Cervical back: Normal range of motion and neck supple. No edema, erythema, rigidity or tenderness. No pain with movement. Normal range of motion. Lymphadenopathy: Cervical: No cervical adenopathy. Skin: General: Skin is warm and dry. Neurological: Mental Status: He is alert and oriented to person, place, and time. ASSESSMENT/PLAN: 1. Viral URI with cough - ICD9: 465.9, ICD10: J06.9 - Discussed viral etiology and rationale for treatment. - Symptomatic treatment with prn analgesia - Supportive care with fluids and rest No evidence of bacterial infection noted. Patient was educated on supportive therapies. Patient will follow up with primary care provider as needed. Patient was instructed to immediately proceed to emergency room for any new, worsening, or symptoms lasting longer than anticipated. The patient's clinical presentation is otherwise unremarkable at this time. Based on exam and clinical finding, the patient is stable for discharge. Plan of care was discussed with patient. Patient verbalizes understanding and agrees to plan of care. This note was generated using milog software. It may contain errors in wording, punctuation, or spelling. Peter Flowers APRN.[employer] Subjective HPI Nontoxic-appearing male presents to urgent care with chief complaint of upper respiratory tract like infection. Duration of symptoms 4 days. Associated symptoms sore throat, nasal congestion, nasal discharge and nonproductive cough. Some shortness of breath only with coughing. Was seen here 2 days ago. Negative influenza COVID test. Presents today due to persistent symptoms. Has used OTC medications to help some. Or home remedies for symptom management. Patient states recent sick contacts with similar signs and symptoms. Patient denies any productive cough, fever, chest pain, shortness of breath, pleuritic pain, rash, abdominal pain, nausea, vomiting or change in bowel or bladder habit. Past medical history prescription medication use allergies reviewed. .Patient presents with: Cough: Cough, congestion and SOB x 2 days-started with sx 4 days ago History reviewed. No pertinent past medical history. PAST SURGICAL HISTORY Procedure Laterality Date MYRINGOTOMY ASPIR&/EUSTACHIAN TUBE NFLTJ ANES Myringotomy/tubes TONSILLECTOMY PRIMARY/SECONDARY <AGE 12 Tonsillectomy ALLERGIES Patient has no known allergies. MEDICATIONS sucralfate (CARAFATE) 1 gram tablet pantoprazole sodium (PROTONIX ORAL) Take by mouth. History reviewed. No pertinent family history. Social History Tobacco Use Smoking status: Light Smoker Smokeless tobacco: Current Vaping Use Vaping Use: Never used Substance Use Topics Alcohol use: No Drug use: No BP 128/82 Pulse 86 Temp 36.8 C (98.2 F) (Tympanic) Resp 16 Wt 72.7 kg (160 lb 3.2 oz) SpO2 97% Review of Systems Constitutional: Positive for malaise/fatigue. Negative for chills and fever. HENT: Positive for congestion, sinus pain and sore throat. Negative for ear discharge and ear pain. Eyes: Negative for blurred vision, pain, discharge and redness. Respiratory: Positive for cough. Negative for hemoptysis, sputum production, shortness of breath, wheezing and stridor. Cardiovascular: Negative for chest pain. Gastrointestinal: Negative for abdominal pain, diarrhea, nausea and vomiting. Musculoskeletal: Positive for myalgias. Skin: Negative for itching and rash. Neurological: Positive for headaches. Negative for dizziness. Objective Physical Exam Constitutional: General: He is not in acute distress. Appearance: He is not diaphoretic. HENT: Head: Normocephalic. Jaw: No trismus, tenderness, swelling or pain on movement. Nose: Congestion present. Mouth/Throat: Mouth: Mucous membranes are moist. Pharynx: Oropharynx is clear. Uvula midline. No pharyngeal swelling, oropharyngeal exudate, posterior oropharyngeal erythema or uvula swelling. Eyes: Conjunctiva/sclera: Conjunctivae normal. Pupils: Pupils are equal, round, and reactive to light. Cardiovascular: Rate and Rhythm: Normal rate and regular rhythm. Heart sounds: Normal heart sounds. Pulmonary: Effort: Pulmonary effort is normal. No tachypnea, accessory muscle usage or respiratory distress. Breath sounds: Normal breath sounds. No stridor. No wheezing, rhonchi or rales. Abdominal: General: There is no distension. Palpations: Abdomen is soft. Tenderness: There is no abdominal tenderness. There is no guarding or rebound. Musculoskeletal: Cervical back: Normal range of motion and neck supple. No edema, erythema, rigidity or tenderness. No pain with movement. Normal range of motion. Lymphadenopathy: Cervical: No cervical adenopathy. Skin: General: Skin is warm and dry. Neurological: Mental Status: He is alert and oriented to person, place, and time. ASSESSMENT/PLAN: 1. Viral URI with cough - ICD9: 465.9, ICD10: J06.9 - Discussed viral etiology and rationale for treatment. - Symptomatic treatment with prn analgesia - Supportive care with fluids and rest Patient was educated on supportive therapies. Patient will follow up with primary care provider as needed. Patient was instructed to immediately proceed to emergency room for any new, worsening, or symptoms lasting longer than anticipated. The patient's clinical presentation is otherwise unremarkable at this time. Based on exam and clinical finding, the patient is stable for discharge. Plan of care was discussed with patient. Patient verbalizes understanding and agrees to plan of care. This note was generated using milog software. It may contain errors in wording, punctuation, or spelling. Peter Flowers APRN.GENIA documented in this encounter [facility] 07-06-2023 Miscellaneous Notes Patient notified.Marge Thomas LPN COVID-19, influenza A, and influenza B PCR test are negative. Continue supportive therapies as discussed during visit. Follow-up with PCP if symptoms are not improving. Peter Flowers APRN.GENIA documented in this encounter [facility] 07-05-2023 Note HNO ID: [id number] Author: Ivette Farah PA-C Service: ? Author Type: Physician Industrial Relations Worker Type: Progress Notes Filed: 07/05/2023 1:18 PM Note Text: This note was created using Maperiter. Klaudia Vargas is a 23 year old male. HPI Presents with a chief complaint of nasal congestion, cough, fever over the past 2 days. 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 Temp has been as high as 100.2. No chest pain or shortness of breath. No diarrhea or vomiting. Denies chronic medical problems. Review of Systems Constitutional: Positive for fatigue and fever. HENT: Positive for congestion and sore throat. Negative for ear pain. Respiratory: Positive for cough. Negative for shortness of breath and wheezing. Cardiovascular: Negative. Gastrointestinal: Negative. Genitourinary: Negative. Musculoskeletal: Positive for myalgias. Neurological: Positive for headaches. All other systems reviewed and are negative. No past medical history on file. Current Outpatient Medications Medication Sig Dispense Refill sucralfate (CARAFATE) 1 gram tablet pantoprazole sodium (PROTONIX ORAL) Take by mouth. No current facility-administered medications for this visit. PAST SURGICAL HISTORY Procedure Laterality Date MYRINGOTOMY ASPIRAND/EUSTACHIAN TUBE NFLTJ ANES Myringotomy/tubes TONSILLECTOMY PRIMARY/SECONDARY Tonsillectomy No family history on file. Social History Tobacco Use Smoking status: Light Smoker Smokeless tobacco: Current Vaping Use Vaping Use: Never used Substance Use Topics Alcohol use: No Drug use: No Objective BP 118/64 Pulse 102 Temp 37.1 ?C (98.8 ?F) Resp 18 Wt 73 kg (161 lb) SpO2 96% Physical Exam Vitals reviewed. Constitutional: Appearance: Normal appearance. HENT: Head: Normocephalic and atraumatic. Right Ear: Tympanic membrane, ear canal and external ear normal. Left Ear: Tympanic membrane, ear canal and external ear normal. Nose: Congestion present. Mouth/Throat: Mouth: Mucous membranes are moist. Pharynx: Oropharynx is clear. Cardiovascular: Rate and Rhythm: Normal rate and regular rhythm. Heart sounds: Normal heart sounds. Pulmonary: Effort: Pulmonary effort is normal. Breath sounds: Normal breath sounds. Musculoskeletal: Cervical back: Neck supple. Skin: General: Skin is warm and dry. Findings: No rash. Neurological: Mental Status: He is alert. Assessment and Plan ASSESSMENT/PLAN: 1. Viral URI with cough - ICD9: 465.9, ICD10: J06.9 - Discussed viral etiology and rationale for treatment. - Group A strep molecular testing negative - Symptomatic treatment with prn analgesia - Supportive care with fluids and rest - Follow up in 3-5 days if symptoms persist or sooner if worsening of symptoms - COVID AND INFLUENZA A/B AND RSV NAAT, ROUTINE Ivette Farah PA-C [facility] 07-05-2023 History of Presen t illness Narrative This note was created using Qwbcgter. Subjective Angel Vargas is a 23 year old male. HPI Presents with a chief complaint of nasal congestion, cough, fever over the past 2 days. 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 Temp has been as high as 100.2. No chest pain or shortness of breath. No diarrhea or vomiting. Denies chronic medical problems. Review of Systems Constitutional: Positive for fatigue and fever. HENT: Positive for congestion and sore throat. Negative for ear pain. Respiratory: Positive for cough. Negative for shortness of breath and wheezing. Cardiovascular: Negative. Gastrointestinal: Negative. Genitourinary: Negative. Musculoskeletal: Positive for myalgias. Neurological: Positive for headaches. All other systems reviewed and are negative. No past medical history on file. Current Outpatient Medications Medication Sig Dispense Refill sucralfate (CARAFATE) 1 gram tablet pantoprazole sodium (PROTONIX ORAL) Take by mouth. No current facility-administered medications for this visit. PAST SURGICAL HISTORY Procedure Laterality Date MYRINGOTOMY ASPIR&/EUSTACHIAN TUBE NFLTJ ANES Myringotomy/tubes TONSILLECTOMY PRIMARY/SECONDARY <AGE 12 Tonsillectomy No family history on file. Social History Tobacco Use Smoking status: Light Smoker Smokeless tobacco: Current Vaping Use Vaping Use: Never used Substance Use Topics Alcohol use: No Drug use: No Objective BP 118/64 Pulse 102 Temp 37.1 C (98.8 F) Resp 18 Wt 73 kg (161 lb) SpO2 96% Physical Exam Vitals reviewed. Constitutional: Appearance: Normal appearance. HENT: Head: Normocephalic and atraumatic. Right Ear: Tympanic membrane, ear canal and external ear normal. Left Ear: Tympanic membrane, ear canal and external ear normal. Nose: Congestion present. Mouth/Throat: Mouth: Mucous membranes are moist. Pharynx: Oropharynx is clear. Cardiovascular: Rate and Rhythm: Normal rate and regular rhythm. Heart sounds: Normal heart sounds. Pulmonary: Effort: Pulmonary effort is normal. Breath sounds: Normal breath sounds. Musculoskeletal: Cervical back: Neck supple. Skin: General: Skin is warm and dry. Findings: No rash. Neurological: Mental Status: He is alert. Assessment and Plan ASSESSMENT/PLAN: 1. Viral URI with cough - ICD9: 465.9, ICD10: J06.9 - Discussed viral etiology and rationale for treatment. - Group A strep molecular testing negative - Symptomatic treatment with prn analgesia - Supportive care with fluids and rest - Follow up in 3-5 days if symptoms persist or sooner if worsening of symptoms - COVID & INFLUENZA A/B & RSV NAAT, ROUTINE Ivette Farah PA-C documented in this encounter [facility] 03-29-2023 Miscellaneous Notes Patient given results and verbalized understanding of instructions given. Perri Ellis ----- Message from Cari Llanos APRN.[employer] sent at 03/29/2023 7:19 AM EDT ----- Please advise patient the COVID, flu test was negative. documented in this encounter [facility] 03-28-2023 Note HNO ID: [id number] Author: Rodrigue Lopez APRN.GENIA Service: ? Author Type: Nurse Practitioner Type: Progress Notes Filed: 03/28/2023 9:15 AM Note Text: Subjective HPI HPI Angel Vargas is a 22 year old male who presents today for CC of st, chills, fever, cough. This started 2 days ago, st worsening. Has tried otc medication for relief. Symptoms are worsened by nothing. Risk factors sick exposures at work. vapes. .Patient presents with: Sore Throat: Chills, cough x2 days No past medical history on file. PAST SURGICAL HISTORY Procedure Laterality Date MYRINGOTOMY ASPIRAND/EUSTACHIAN TUBE NFLTJ ANES Myringotomy/tubes TONSILLECTOMY PRIMARY/SECONDARY Tonsillectomy ALLERGIES Patient has no known allergies. MEDICATIONS sucralfate (CARAFATE) 1 gram tablet pantoprazole sodium (PROTONIX ORAL) Take by mouth. No family history on file. Social History Tobacco Use Smoking status: Light Smoker Smokeless tobacco: Current Vaping Use Vaping Use: Never used Substance Use Topics Alcohol use: No Drug use: No Review of Systems Constitutional: Positive for chills, fever and malaise/fatigue. HENT: Positive for congestion and sore throat. Negative for ear pain and nosebleeds. Respiratory: Positive for cough. Negative for shortness of breath and wheezing. Cardiovascular: Negative for chest pain. Gastrointestinal: Negative for diarrhea and vomiting. Musculoskeletal: Negative for neck pain. Skin: Negative for itching and rash. Objective Blood pressure 115/79, pulse 94, temperature 36.3 ?C (97.3 ?F), resp. rate 18, weight 71.6 kg (157 lb 12.8 oz), SpO2 97 %. Physical Exam Constitutional: General: He is not in acute distress. Appearance: He is not toxic-appearing or diaphoretic. HENT: Head: Normocephalic and atraumatic. Right Ear: Hearing, tympanic membrane, ear canal and external ear normal. Left Ear: Hearing, tympanic membrane, ear canal and external ear normal. Nose: Nose normal. Mouth/Throat: Pharynx: Uvula midline. Posterior oropharyngeal erythema present. No pharyngeal swelling, oropharyngeal exudate or uvula swelling. Eyes: General: Lids are normal. No scleral icterus. Right eye: No discharge. Left eye: No discharge. Conjunctiva/sclera: Conjunctivae normal. Pupils: Pupils are equal, round, and reactive to light. Neck: Trachea: Trachea normal. Cardiovascular: Rate and Rhythm: Normal rate and regular rhythm. Heart sounds: Normal heart sounds. Pulmonary: Effort: Pulmonary effort is normal. Breath sounds: Normal breath sounds. Musculoskeletal: Cervical back: Normal range of motion and neck supple. Lymphadenopathy: Cervical: Cervical adenopathy present. Right cervical: Superficial cervical adenopathy present. Left cervical: Superficial cervical adenopathy present. Skin: Findings: No rash. Neurological: Mental Status: He is alert and oriented to person, place, and time. ASSESSMENT/PLAN: 1. URI, acute - ICD9: 465.9, ICD10: J06.9 (primary diagnosis) - Discussed viral etiology and rationale for treatment. - Symptomatic treatment with prn analgesia - Supportive care with fluids and rest - Follow up in 3-5 days if symptoms persist or sooner if worsening of symptoms Discussed quarantine, social distancing otc medications discussed Push fluids -If you experience chest pain/shortness of breath go to ER - COVID AND INFLUENZA A/B NAAT, ROUTINE - PREDNISONE 20 MG TABLET 2. Sore throat - ICD9: 462, ICD10: J02.9 Neg, viral - STREP A MOLECULAR (POC) - PREDNISONE 20 MG TABLET Rodrigue Lopez APRN.CNP [facility] 10-09-2022 Hospital Discharg e instructions Patient Education 10/09/2022 00:44:05 Vomiting (Adult) Vomiting (Adult) Vomiting is a common symptom that may be due to different causes. These include gastroenteritis ( stomach flu ), food poisoning and gastritis. There are other more serious causes of vomiting which may be hard to diagnose early in the illness. Therefore, it is important to watch for the warning signs listed below. The main danger from repeated vomiting is dehydration. This is due to excess loss of water and minerals from the body. When this occurs, your body fluids must be replaced. Home care If symptoms are severe, rest at home for the next 24 hours. Because your symptoms may be from an infection, wash your hands often and well. If soap and water are not available, use alcohol-based screen machine operator to keep from spreading the infection to others. Wash your hands for at least 20 seconds. Humming the happy birthday song twice while you wash is an easy way to make sure you've washed for 20 seconds. Wash your hands after using the toilet, before and after preparing food, before eating food, after changing a diaper, cleaning a wound, caring for a sick person, and blowing your nose, coughing, or sneezing. You should also wash your hands after caring for someone who is sick, touching pet food, or treats, and touching an animal, or animal waste. You may use acetaminophen or NSAID medicines like ibuprofen or naproxen to control fever, unless another medicine was prescribed. If you have chronic liver or kidney disease or ever had a stomach ulcer or gastrointestinal bleeding, talk with your doctor before using these medicines. Aspirin should never be used in anyone under 18 years of age who is ill with a fever. It may cause severe liver damage. Don't use NSAID medicines if you are already taking one for another condition (like arthritis) or are on aspirin (such as for heart disease, or after a stroke) Don't use tobacco and or drink alcohol, which may worsen your symptoms. If medicines for vomiting were prescribed, take as directed. Once vomiting stops, then follow these guidelines: During the first 12 to 24 hours follow the diet below: Fruit juices. Apple, grape juice, clear fruit drinks, and electrolyte replacement drinks. Beverages. Soft drinks without caffeine; mineral water (plain or flavored), decaffeinated tea and coffee. Soups. Clear broth and bouillon Desserts. Plain gelatin, ice pops, and fruit juice bars. As you feel better, you may add 6 to 8 ounces of yogurt per day. During the next 24 hours you may add the following to the above: Hot cereal, plain toast, bread, rolls, crackers Plain noodles, rice, mashed potatoes, chicken noodle or rice soup Unsweetened canned fruit such as applesauce, bananas (avoid pineapple and citrus) Limit caffeine and chocolate. No spices or seasonings except salt. During the next 24 hours: Gradually resume a normal diet, as you feel better and your symptoms lessen. Follow-up care Follow up with your healthcare provider, or as advised. When to seek medical advice Call your healthcare provider right away if any of these occur: Constant right-sided lower belly pain or increasing general belly pain Continued vomiting (unable to keep liquids down) for 24 hours Vomiting blood or coffee grounds Swollen belly Frequent diarrhea (more than 5 times a day); blood (red or black color) or mucus in diarrhea Reduced urine output or extreme thirst Weakness, dizziness or fainting Unusually drowsy or confused Fever of 100.4 F (38 C) oral or higher, or as directed Yellow color of the eyes or skin 7306-0751 [employer]. [address] [place] [address], [place] [address]. All rights reserved. This information is not intended as a substitute for professional medical care. Always follow your healthcare professional's instructions. 10/09/2022 00:43:59 Gastritis or Ulcer (No Antibiotic Treatment) Gastritis or Ulcer, No Antibiotic Treatment Gastritis is irritation and inflammation of the stomach lining. This means the lining is red and swollen. It can cause shallow sores in the stomach lining called erosions. An ulcer is a deeper open sore in the lining of the stomach. It may also occur in the first part of the small intestine (duodenum). The causes and symptoms of gastritis and ulcers are very similar. Causes and risk factors for both problems can include: Long-term use of nonsteroidal anti-inflammatory drugs (NSAIDs), such as aspirin and ibuprofen H. pylori bacteria infection Tobacco use Alcohol use Certain other conditions such as immune disorders, certain medicines (high-dose iron supplements) and street drugs (such as cocaine) Symptoms for both problems can include: Dull or burning pain in the upper part of the belly Loss of appetite Heartburn or upset stomach Frequent burping Bloated feeling Nausea with or without vomiting You likely had an evaluation to help find the exact cause and extent of your problem. This may have included a health history, exam, and certain tests. Results showed that your problem is not due to H. pylori infection. For this reason, you don't need antibiotics as part of your treatment. Whether your problem is gastritis or an ulcer, you will still need to take other medicines, however. You will also need to follow instructions to help reduce stomach irritation so your stomach can heal. Home care Take any medicines you re prescribed exactly as directed. Common medicines used to treat gastritis include: oAntacids. These help neutralize the normal acids in your stomach. oProton pump inhibitors. These block your stomach from making any acid. oH2 blockers. These reduce the amount of acid your stomach makes. oBismuth subsalicylate. This helps protect the lining of your stomach from acid. Don't take any NSAIDs during your treatment. If you take NSAID to help treat other health problems, tell your healthcare provider. He or she may need to adjust your medicine plan or change the dosage. Don t use tobacco. Also don t drink alcohol. These products can increase the amount of acid your stomach makes. This can delay healing. It can also worsen symptoms. Follow-up care Follow up with your healthcare provider, or as advised. In some cases, more testing may be needed. When to seek medical advice Call your healthcare provider right away if any of these occur: Fever of 100.4 F (38 C) or higher, or as directed by your healthcare provider Stomach pain that worsens or moves to the lower right part of belly Extreme fatigue Weakness or dizziness Continued weight loss Frequent vomiting, blood in your vomit, or coffee ground-like substance in your vomit Black, tarry, or bloody stools Call 911 Call 911 if any of these occur: Chest pain appears or worsens, or spreads to the back, neck, shoulder, or arm Unusually fast heart rate Trouble breathing or swallowing Confusion Extreme drowsiness or trouble waking up Fainting Large amounts of blood present in vomit or stool [phone] [employer]. [address] [place] [address]. All rights reserved. This information is not intended as a substitute for professional medical care. Always follow your healthcare professional's instructions. Follow Up Care 10/08/2022 22:58:57 With:MANASA VILCHIS MD Address: [address] [place] [id number] When:2-4 days [facility] 10-09-2022 Note Discharge Instructions Thank you for allowing [facility] to assist you with your healthcare needs. The following is important discharge information regarding your hospital visit. Diagnosis from Today's Visit Abdominal pain Nausea, vomiting and diarrhea Diarrhea Vomiting What to Do Next Instructions from Your Care Team Discharge Return to Work, School, or Sports (Return to Work, School, or Sports) - Ordered -- 10/10/22, May return to: work, 10/09/22 0:44:00 EDT Post Acute Orders No qualifying data available. You Need to Schedule the Following Appointments Follow Up with MANASA VILCHIS MD When Within 2-4 days Where: [address] [place] [id number]- Allergies NKA Medications Please ask your primary doctor or pharmacist before taking any other medication not listed, including over the counter drugs, herbal medications, vitamins and or supplements as they may interact with your home medications. What How Much When Why Instructions Last Dose New dicyclomine (Bentyl use dicyclomine ) 20 Milligram by mouth Four (4) times a day Abdominal pain Nausea, vomiting and diarrhea Duration: 7 Days Printed Prescription Changed ondansetron (ondansetron 4 mg oral tablet, disintegrating) 1 tab(s) by mouth Every 6 hours Abdominal pain Nausea, vomiting and diarrhea Duration: 4 Days Printed Prescription Changed ondansetron (Zofran ODT 4 mg oral tablet, disintegrating) 1 tab(s) by mouth Every 4 hours as needed for Nausea/Vomiting Unchanged albuterol (Ventolin HFA) 2 puff(s) by inhalation Four (4) times a day Unchanged famotidine (Pepcid 40 mg oral tablet) 1 tab(s) by mouth Two (2) times a day Duration: 14 Days Unchanged oseltamivir (Tamiflu) by mouth Two (2) times a day Unchanged sucralfate (sucralfate 1 g oral tablet) 1 tab(s) by mouth Four (4) times a day Duration: 10 Days Please take this list to your next doctor s visit. Bring all medications you take, including over the counter medications, herbals and other supplements with you to your doctor s visit. Patients and families are reminded to discard old lists and to update any records with all medication providers or retail pharmacies. Education Materials Vomiting (Adult) Vomiting is a common symptom that may be due to different causes. These include gastroenteritis ( stomach flu ), food poisoning and gastritis. There are other more serious causes of vomiting which may be hard to diagnose early in the illness. Therefore, it is important to watch for the warning signs listed below. The main danger from repeated vomiting is dehydration. This is due to excess loss of water and minerals from the body. When this occurs, your body fluids must be replaced. Home care If symptoms are severe, rest at home for the next 24 hours. Because your symptoms may be from an infection, wash your hands often and well. If soap and water are not available, use alcohol-based screen machine operator to keep from spreading the infection to others. Wash your hands for at least 20 seconds. Humming the happy birthday song twice while you wash is an easy way to make sure you've washed for 20 seconds. Wash your hands after using the toilet, before and after preparing food, before eating food, after changing a diaper, cleaning a wound, caring for a sick person, and blowing your nose, coughing, or sneezing. You should also wash your hands after caring for someone who is sick, touching pet food, or treats, and touching an animal, or animal waste. You may use acetaminophen or NSAID medicines like ibuprofen or naproxen to control fever, unless another medicine was prescribed. If you have chronic liver or kidney disease or ever had a stomach ulcer or gastrointestinal bleeding, talk with your doctor before using these medicines. Aspirin should never be used in anyone under 18 years of age who is ill with a fever. It may cause severe liver damage. Don't use NSAID medicines if you are already taking one for another condition (like arthritis) or are on aspirin (such as for heart disease, or after a stroke) Don't use tobacco and or drink alcohol, which may worsen your symptoms. If medicines for vomiting were prescribed, take as directed. Once vomiting stops, then follow these guidelines: During the first 12 to 24 hours follow the diet below: Fruit juices. Apple, grape juice, clear fruit drinks, and electrolyte replacement drinks. Beverages. Soft drinks without caffeine; mineral water (plain or flavored), decaffeinated tea and coffee. Soups. Clear broth and bouillon Desserts. Plain gelatin, ice pops, and fruit juice bars. As you feel better, you may add 6 to 8 ounces of yogurt per day. During the next 24 hours you may add the following to the above: Hot cereal, plain toast, bread, rolls, crackers Plain noodles, rice, mashed potatoes, chicken noodle or rice soup Unsweetened canned fruit such as applesauce, bananas (avoid pineapple and citrus) Limit caffeine and chocolate. No spices or seasonings except salt. During the next 24 hours: Gradually resume a normal diet, as you feel better and your symptoms lessen. Follow-up care Follow up with your healthcare provider, or as advised. When to seek medical advice Call your healthcare provider right away if any of these occur: Constant right-sided lower belly pain or increasing general belly pain Continued vomiting (unable to keep liquids down) for 24 hours Vomiting blood or coffee grounds Swollen belly Frequent diarrhea (more than 5 times a day); blood (red or black color) or mucus in diarrhea Reduced urine output or extreme thirst Weakness, dizziness or fainting Unusually drowsy or confused Fever of 100.4 F (38 C) oral or higher, or as directed Yellow color of the eyes or skin [id number] [employer]. [address] [place] [address], [place] [address]. All rights reserved. This information is not intended as a substitute for professional medical care. Always follow your healthcare professional's instructions. Gastritis or Ulcer, No Antibiotic Treatment Gastritis is irritation and inflammation of the stomach lining. This means the lining is red and swollen. It can cause shallow sores in the stomach lining called erosions. An ulcer is a deeper open sore in the lining of the stomach. It may also occur in the first part of the small intestine (duodenum). The causes and symptoms of gastritis and ulcers are very similar. Causes and risk factors for both problems can include: Long-term use of nonsteroidal anti-inflammatory drugs (NSAIDs), such as aspirin and ibuprofen H. pylori bacteria infection Tobacco use Alcohol use Certain other conditions such as immune disorders, certain medicines (high-dose iron supplements) and street drugs (such as cocaine) Symptoms for both problems can include: Dull or burning pain in the upper part of the belly Loss of appetite Heartburn or upset stomach Frequent burping Bloated feeling Nausea with or without vomiting You likely had an evaluation to help find the exact cause and extent of your problem. This may have included a health history, exam, and certain tests. Results showed that your problem is not due to H. pylori infection. For this reason, you don't need antibiotics as part of your treatment. Whether your problem is gastritis or an ulcer, you will still need to take other medicines, however. You will also need to follow instructions to help reduce stomach irritation so your stomach can heal. Home care Take any medicines you re prescribed exactly as directed. Common medicines used to treat gastritis include: oAntacids. These help neutralize the normal acids in your stomach. oProton pump inhibitors. These block your stomach from making any acid. oH2 blockers. These reduce the amount of acid your stomach makes. oBismuth subsalicylate. This helps protect the lining of your stomach from acid. Don't take any NSAIDs during your treatment. If you take NSAID to help treat other health problems, tell your healthcare provider. He or she may need to adjust your medicine plan or change the dosage. Don t use tobacco. Also don t drink alcohol. These products can increase the amount of acid your stomach makes. This can delay healing. It can also worsen symptoms. Follow-up care Follow up with your healthcare provider, or as advised. In some cases, more testing may be needed. When to seek medical advice Call your healthcare provider right away if any of these occur: Fever of 100.4 F (38 C) or higher, or as directed by your healthcare provider Stomach pain that worsens or moves to the lower right part of belly Extreme fatigue Weakness or dizziness Continued weight loss Frequent vomiting, blood in your vomit, or coffee ground-like substance in your vomit Black, tarry, or bloody stools Call 911 Call 911 if any of these occur: Chest pain appears or worsens, or spreads to the back, neck, shoulder, or arm Unusually fast heart rate Trouble breathing or swallowing Confusion Extreme drowsiness or trouble waking up Fainting Large amounts of blood present in vomit or stool [id number] [employer]. [address] [place] [address], [place] [address]. All rights reserved. This information is not intended as a substitute for professional medical care. Always follow your healthcare professional's instructions. Additional Information VACCINATE! IT SAVES LIVES! Members of the community who have not yet received the COVID-19 vaccine and would like to receive it can visit one of [facility] vaccine clinics. There are many vaccine clinic locations within the [facility]. For locations and available times, please visit [email or web address] It is important to note that some COVID mobile vaccine clinics are held outdoors and may be canceled in rainy or stormy conditions. To learn more about pediatric vaccinations (ages 5-11), we invite you to visit the [facility] webpage. [email or web address] To learn more about the COVID-19 vaccine, we invite you to visit the CDC website for a list of frequently asked questions. https://www.cdc.gov/coronavirus/ 2019-ncov/vaccines/faq.html [facility] Patient Portal Access Instructions: Stay connected with your healthcare team and access your personal medical information anytime with the [facility] Patient Portal. If you would like a full copy of your medical records please contact the [facility] Medical Records Department Tuesday through Tuesday between 8a.m. and 4:30p.m. Please follow the directions below to access the portal: 1.Access the email account you provided upon registration to the [facility].2.Look for an invitation email from [facility].3.Open the email and access the invitation link: Accept Invitation to [facility]4.Fill in the required canseco to create your account. Sign into [email or web address] with your username and password that you created in the above steps to stay up to date. You can then view a summary of results, a summary of your visits, and the ability to download your summaries to your computer or send the information securely to a physician. Remember that your healthcare information is confidential, so carefully consider who you will allow to register on the [facility] Patient Portal for access to your information. You can also access the [facility] Patient Portal on the [employer]. Simply click on Health Records under Health Data and then click on the An logo. HOW TO SAFELY DISPOSE OF PRESCRIPTION MEDICATIONS Please use one of the following methods to safely dispose of your unused medications. 1.Use a drug disposal kit: the drug disposal pouch allows you to safely discard your old and unused drugs. Ask your nurse to give you one when you are discharged.2.Visit a local take-back location: Many local pharmacies and police departments have programs that collect old and unwanted prescription drugs. Call your local pharmacy or go to http://Oree.[employer]/9S1Ua7q to find one close to you.3.Make use of household items: Use cat litter or old coffee grounds to dispose medications if other options are not available. Mix your drugs with these household products, seal them in an airtight container and throw it into the garbage. Call [facility]: [phone] to be sure your drugs can be disposed of in this way. Some medicines may require a different approach.4.Never flush your medications down the toilet. IF YOU HAVE BEEN PRESCRIBED AN OPIOIDS FOR PAIN If you have been prescribed an opioid (such as hydrocodone, oxycodone or morphine), it is critical to understand the possible side effects and risks of opioid pain medications. Even when taken as directed, opioids can have several side effects including: Tolerance, meaning you might need to take more of a medication for the same pain relief. Nausea, vomiting and/or constipation. Sleepiness, dizziness, dry mouth, confusion, depression or itching. Physical dependence, meaning you have withdrawal symptoms when a medication is stopped ? this can develop within a few days. KNOW YOUR RESPONSIBILITIES It is important to know exactly how much and how often to take the opioid pain medications you are prescribed. Never take opioids in higher amounts or more often than prescribed. Do not combine opioids with alcohol or other drugs that cause drowsiness, such as benzodiazepines, also known as benzos, including diazepam and alprazolam, muscle relaxants or sleep aids. Never sell or share prescription opioids. This is illegal. Store opioids in a secure place and out of reach of others (including children, family, friends and visitors). The last page(s) of this document has been signed and retained as a CHART COPY Signatures Patient Education Materials Vomiting (Adult) Gastritis or Ulcer (No Antibiotic Treatment) Medication Leaflets My discharge plan and instructions have been reviewed and explained to me and I,ANGEL VARGAS R understand my current condition and have read and understand these discharge instructions. I have received a written copy of the plan/instructions. If I have questions, I am aware that I should contact my doctor. Patient/Clinical Application Manager Signature: Date/Time: Relationship to Patient: Witness Name/Signature: Date/Time: [facility] Evaluation + Plan note No data available for this section [facility] Evaluation note No assessment inform ation available [facility] Work Phone: [facility] Diagnosis Viral URI with cough- Primary Acute upper respiratory infections of unspecified site documented in this encounter [facility] Summary Purpose Family History No Family History Records FoundNo Family History Records FoundNo Family History Records FoundNo Family History Records FoundNo Family History Records FoundNo Family History Records FoundNo Family History Records FoundNo Family History Records FoundNo Family History Records Found Advance Directives No Advanced Directives Records Found Advance Directive Response Recorded Date/ Time Advance Directives No November 22, 2021 3:22pm Hospital Course Note Send Summary: Discharge Summ destiney Providers: Provider RoleProvider Name Marc Krishnan Elian Hampton Vineeta PrimaryRanney, Christopher Note Recipients: Jil Linda MD Discharge: Summary: Admission Date: .11-Aug-2019 19:35:00 Discharge Date: 14-Aug-2019 Attending Physician at Discharge: Elian Lobo Admission Reason: Right-sided abdominal pain Final Discharge Diagnoses: Right upper quadrant pain Procedures: Date: 12-Aug-2019 14:27:00 Procedure Name: 1. Diagnostic laparoscopy, laparoscopic appendectomy 2. 3. 4. 5. Alicia Procedure Date: 08/14/2019 10:16 AM Date of : 2000 Admit Type: Inpatient Site: [facility] Ethnicity: Not or Race: White Attending MD: Jil Linda , Aug 14, 2019 Condition at Discharge: Satisfactory Disposition at Discharge: .Home Vital Signs: T PRBPSpO2 [id number]% Date/Time08/14 8: 8: 8: 8: 7:50 Range(36.3C - 37.1C ) (46 - 7 (more content not included)... Note Post Operative Note: PreOp D iagnosis: Abdominal pain Post-Procedure Diagnosis: Mild acute appendicitis Procedure: 1. Diagnostic laparoscopy, laparoscopic appendectomy 2. 3. 4. 5. Surgeon: Jil Linda MD Resident/Fellow/Other Industrial Relations Worker: none Anesthesia: Gen Estimated Blood Loss (mL): 10 Specimen: yes Findings: appendix mildly distended and inflamed at the tip Operative Report Dictated: Dictation: not applicable - note contains Operative Report Operative Report: INDICATIONS: patient is a 19-year-old male who presented with the right lower quadrant pain and found to have mildly dilated appendix on CT scan with mild wall enhancement. After a period of observation and non-improvement, we discussed options and he decided to proceed with diagnostic laparoscopy possible appendectomy. he was brought to the operating room. PROCEDURE NOTE: patient was brought to the operating room and placed on operating room table in supine position. He received DVT prophylaxis with subcutaneous heparin a (more content not included)... Procedure Findings Note Post Operative Note: PreOp D iagnosis: Abdominal pain Post-Procedure Diagnosis: Mild acute appendicitis Procedure: 1. Diagnostic laparoscopy, laparoscopic appendectomy 2. 3. 4. 5. Surgeon: Jil Linda MD Resident/Fellow/Other Industrial Relations Worker: none Anesthesia: Gen Estimated Blood Loss (mL): 10 Specimen: yes Findings: appendix mildly distended and inflamed at the tip Operative Report Dictated: Dictation: not applicable - note contains Operative Report Operative Report: INDICATIONS: patient is a 19-year-old male who presented with the right lower quadrant pain and found to have mildly dilated appendix on CT scan with mild wall enhancement. After a period of observation and non-improvement, we discussed options and he decided to proceed with diagnostic laparoscopy possible appendectomy. he was brought to the operating room. PROCEDURE NOTE: patient was brought to the operating room and placed on operating room table in supine position. He received DVT prophylaxis with subcutaneous heparin a (more content not included)... Chief Complaint and Reason for Visit Chief Complaint vomiting,tingling in lt arm,dizziness Additional Source Comments (unrecognized sect ion and content) No Status Records FoundNo Status Records FoundNo Status Records FoundNo Status Records FoundNo Status Records FoundNo Status Records FoundNo Status Records FoundNo Status Records FoundNo Status Records Found INFORMATION SOURCE (unrecogn ized section and content) DATE CREATED AUTHOR AUTHOR'S ORGANIZ ATION 08/14/2019 [facility] DATE CREATED AUTHOR AUTHOR'S ORGANIZ ATION 09/12/2019 [facility] DATE CREATED AUTHOR AUTHOR'S ORGANIZ ATION 01/01/2020 [facility] DATE CREATED AUTHOR AUTHOR'S ORGANIZ ATION 02/25/2021 [facility] DATE CREATED AUTHOR AUTHOR'S ORGANIZ ATION 09/09/2021 [facility] DATE CREATED AUTHOR AUTHOR'S ORGANIZ ATION 08/28/2022 [facility] DATE CREATED AUTHOR AUTHOR'S ORGANIZ ATION 10/13/2022 [facility] DATE CREATED AUTHOR AUTHOR'S ORGANIZ ATION 07/07/2023 [facility] Care Teams (unrecognized sec tion and content) Team Status: Active Member Role Status Dates NON STAFF Primary Care Provider Active Director Sales Support Relationship Specialty Start Date End Date Manasa Vilchis [address] [place] [address] PCP - General Family Medicine 09/11/19 Director Sales Support Relationship Specialty Start Date End Date Manasa Vilchis [address] [place] [address] PCP - General Family Medicine 09/11/19 Director Sales Support Relationship Specialty Start Date End Date Manasa Vilchis [address] [place] [address] PCP - General Family Medicine 09/11/19 Director Sales Support Relationship Specialty Start Date End Date Manasa Vilhcis [address] [place] [address] PCP - General Family Medicine 09/11/19 Goals (unrecognized section and content) Goals may be documented in a n alternate section No data available for this section Source Comments (unrecognize d section and content) In the event this informatio n is protected by the Federal Confidentiality of Alcohol and Drug Abuse Patient Records regulations: The Federal rules restrict any use of the information to criminally investigate or prosecute any alcohol or drug abuse patient.[facility] the event this information is protected by the Federal Confidentiality of Alcohol and Drug Abuse Patient Records regulations: The Federal rules restrict any use of the information to criminally investigate or prosecute any alcohol or drug abuse patient.[facility] the event this information is protected by the Federal Confidentiality of Alcohol and Drug Abuse Patient Records regulations: The Federal rules restrict any use of the information to criminally investigate or prosecute any alcohol or drug abuse patient.[facility] the event this information is protected by the Federal Confidentiality of Alcohol and Drug Abuse Patient Records regulations: The Federal rules restrict any use of the information to criminally investigate or prosecute any alcohol or drug abuse patient.[facility] Reason for Visit (unrecogniz ed section and content) Reason Comments Nasal Congestion drainage, cough, sor e throat and fever x 2 days Reason Comments Cough Cough, congestion an d SOB x 2 days-started with sx 4 days ago FOR RECORDS PERTAINING TO PATIENTS WHO ARE OR HAVE BEEN ENROLLED IN A CHEMICAL DEPENDENCY/SUBSTANCEABUSE PROGRAM, SOME INFORMATION MAY BE OMITTED. This clinical summary was aggregated from multiple sources. Caution should be exercised in using it in the provision of clinical care. This summary normalizes information from multiple sources, and as a consequence, information in this document may materially change the coding, format and clinical context of patient data. In addition, data may be omitted in some cases. CLINICAL DECISIONS SHOULD BE BASED ON THE PRIMARY CLINICAL RECORDS. [facility] [employer] [facility]. provides no warranty or guarantee of the accuracy or completeness of information in this document.
[2023-07-21] MEDS: Cefazolin 2 GM in 0.9% Normal Saline (100mL Bag) 100 ML IV (13:55)
[2023-07-21] MEDS: Epinephrine (1 mg/ml) 1 MG/ML VIAL (14:16)
[2023-07-21] MEDS: Bupivacaine 0.5% PF 10 ML VIAL ×2 (14:32→14:33)
[2023-07-21] MEDS: Ketorolac 30 MG/ML Syringe IV (15:12)
[2023-07-21] MEDS: Oxycodone/Apap 5/325 Tablet PO (15:36)
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
== END 2023-07-21 15:59 | disposition home or self-care (01) ==
LOC: SDC 11:21 → AC 11:23
PROVIDERS: PCP Family Medicine; Referring Provider Student in an Organized Health Care Education/Training Program; Visit Provider Student in an Organized Health Care Education/Training Program
PROC: (CPT 29870; principal; 2023-07-21 14:10)
DX: M25.862 Other specified joint disorders, left knee (principal); S83.8X2A Sprain of other specified parts of left knee, initial encounter; S80.02XA Contusion of left knee, initial encounter; F17.290 Nicotine dependence, other tobacco product, uncomplicated; X58.XXXA Exposure to other specified factors, initial encounter
CPT/HCPCS: 29877; 01400; J7120; J2405

== ENCOUNTER → 2023-10-25 | Outpatient (CLI) | payer BC, SELFPAY ==
[2023-10-25 18:29] LABS: Absolute Lymphocyte Count 2.95 X10^3/uL (0.83-4.51); Absolute Neutrophil Count 3.6 X10^3/uL (2.0-7.7); Basophil# 0.05 X10^3/uL; Basophil% 0.7 % (0-1); Eosinophil# 0.12 X10^3/uL; Eosinophils% 1.7 % (0-5); Hematocrit 50.5 % (40-54); Hemoglobin 17.2 g/dL (13.0-16.5); Lymphocyte # 2.95 X10^3/ul (0.83-4.51); Lymphocyte % 41.2 % (19-41); Mean Corp Hgb Conc 34.1 g/dL (32-36); Mean Corpuscular Hgb 29.2 pg (27.0-32.0); Mean Corpuscular Volume 85.7 fL (80-94); Monocyte# 0.46 X10^3/uL; Monocyte% 6.4 % (0-10); NRBC Flagged by Analyzer 0 % (0-5); Neutrophil # 3.57 X10^3/uL (2.7-7.7); Neutrophil % 49.9 % (47-70); Platelet Count 235 K/mm3 (150-450); RBC Distribution Width CV 12.3 % (11.6-14.6); RBC Distribution Width SD 38.5 fl (35.1-43.9); Red Blood Count 5.89 M/mm3 (4.6-6.2); White Blood Count 7.2 K/mm3 (4.4-11.0)
[2023-10-25 19:58] LABS: ALB/GLOB Ratio 1.1 RATIO (0.9-2.4); AST(SGOT) 17 U/L (15-37); Alanine Aminotransfer ALT/SGPT 25 U/L (16-61); Albumin, Serum 3.9 g/dL (3.2-5.0); Alkaline Phosphatase 57 U/L (45-117); Amylase 33 U/L (25-115); Anion Gap 7 (5-15); BUN 13 mg/dL (7-18); BUN/Creat Ratio 13.5 RATIO (10-20); CRP < 2.90 mg/L (0.0-3.0); Calcium,Total 8.7 mg/dL (8.5-10.1); Chloride 106 mmol/L (98-107); Creatinine, Serum 0.96 mg/dL (0.70-1.30); EST Glomerular Filtration Rate 103 mL/min (>60); Est Glom Filt Rate - Afr Amer 124 mL/min (>60); Ferritin 47 ng/mL (26-388); Globulin 3.4 g/dL (2.2-4.2); Glucose 96 mg/dL (74-106); Iron 93 ug/dL (65-175); Lipase 27 U/L (13-75); Protein, Total 7.3 g/dL (6.4-8.2); Sodium Level 139 mmol/L (136-145); Thyroid Stim Hormone (TSH) 0.78 uIU/mL (0.358-3.74)
[2023-10-26 12:47] LABS: Erythrocyte Sedimentation Rate 2 mm/hr (0-20)
[2023-10-28 07:08] LABS: Deamidated Gliadin IgA 6 units (0-19); Deamidated Gliadin IgG 2 units (0-19); Endomysial Antibody IgA Negative (Negative); Immunoglobulin A 161 mg/dL (90-386); t-Transglutaminase IgA <2 U/mL (0-3)
[2023-11-02 09:09] LABS: Alternaria alternata <0.10 kU/L (Class 0); Aspergillus fumigatus <0.10 kU/L (Class 0); Bahia Grass <0.10 kU/L (Class 0); Beef <0.10 kU/L (Class 0); Bermuda Grass <0.10 kU/L (Class 0); Bluegrass, Kentucky <0.10 kU/L (Class 0); Cat Hair/Dander, Standard <0.10 kU/L (Class 0); Cedar, Mountain <0.10 kU/L (Class 0); Chocolate <0.10 kU/L (Class 0); Cladosporium herbarum <0.10 kU/L (Class 0); Cockroach, American <0.10 kU/L (Class 0); Codfish <0.10 kU/L (Class 0); Corn <0.10 kU/L (Class 0); D farinae Mite <0.10 kU/L (Class 0); D pteronyssinus <0.10 kU/L (Class 0); Dog Epithelia <0.10 kU/L (Class 0); Egg, Whole <0.10 kU/L (Class 0); Elm, American White <0.10 kU/L (Class 0); Hazelnut Tree <0.10 kU/L (Class 0); Hickory, White <0.10 kU/L (Class 0); Johnson Grass <0.10 kU/L (Class 0); Maple/Box Elder <0.10 kU/L (Class 0); Milk (Cow) <0.10 kU/L (Class 0); Mucor racemosus <0.10 kU/L (Class 0); Mugwort <0.10 kU/L (Class 0); Mulberry, White <0.10 kU/L (Class 0); Mussels <0.10 kU/L (Class 0); Nettle <0.10 kU/L (Class 0); Oak, White <0.10 kU/L (Class 0); Peanut <0.10 kU/L (Class 0); Penicillium chrysogen <0.10 kU/L (Class 0); Pigweed, Rough <0.10 kU/L (Class 0); Plantain, English <0.10 kU/L (Class 0); Pork <0.10 kU/L (Class 0); Ragweed, Short/Common <0.10 kU/L (Class 0); Salmon <0.10 kU/L (Class 0); Sheep Sorrel(Dock) <0.10 kU/L (Class 0); Shrimp <0.10 kU/L (Class 0); Soybean <0.10 kU/L (Class 0); Stemphylium herbarum <0.10 kU/L (Class 0); Sweet Gum <0.10 kU/L (Class 0); Sycamore, American <0.10 kU/L (Class 0); Tuna <0.10 kU/L (Class 0); Wheat <0.10 kU/L (Class 0)
== END | disposition home or self-care (01) ==
LOC: LAB 17:57
PROVIDERS: PCP Family Medicine; Visit Provider Family Medicine
DX: R53.83 Other fatigue (principal); R10.9 Unspecified abdominal pain
CPT/HCPCS: 36415; 80053; 82150; 82728; 82784; 83516; 83540; 83690; 84403; 84443; 85025; 85652; 86003; 86005; 86140; 86255

== ENCOUNTER → 2023-10-28 | Outpatient (CLI) | payer BC, SELFPAY ==
[2023-11-02 22:07] LABS: Pancreatic Elastase, Fecal 159 (>200)
== END | disposition home or self-care (01) ==
LOC: MTLAB 12:38
PROVIDERS: PCP Family Medicine; Referring Provider Family Medicine; Visit Provider Family Medicine
DX: R10.9 Unspecified abdominal pain (principal); R53.83 Other fatigue
CPT/HCPCS: 82653

== ENCOUNTER 2024-01-11 10:11 | Emergency (ER) | payer OTHER, SELFPAY ==
[2024-01-11 10:12] VITALS: BP 118/75; PULSE 74; RESP 16; TEMP 36.4; O2SAT 98; BMI 25.1
--- NOTE | 2024-01-11 10:27 | CT_ITS ---
STUDY: CTA ABDOMEN AND PELVIS WITH CONTRAST REASON FOR EXAM: Male, 23 years old. Abdominal pain and bleeding. History of a gastric ulcer. RADIATION DOSAGE (If Supplied By Facility): CTDIvol = ( 17.18 ) mGy, DLP = ( 510.91 ) mGycm TECHNIQUE: Transaxial images were obtained from the dome of the diaphragm to the symphysis pubis without oral contrast. IV 100mL Isovue-370 was administered. Sagittal and coronal images were reconstructed. 3-D images were reconstructed. Individualized dose optimization techniques were used for this CT. COMPARISON: None. FINDINGS: The visualized lung bases are unremarkable. The visualized portions of the heart are within normal limits. Normal liver. Normal gallbladder and extrahepatic biliary system. Normal spleen. Normal pancreas. Normal bilateral adrenal glands. Normal right kidney. Normal left kidney. Normal visualized stomach. Normal small intestine. Normal colon. There are surgical clips in the region of the appendix consistent with a prior appendectomy. Normal abdominal aorta. Normal inferior vena cava. Normal retroperitoneum. Normal urinary bladder. Normal abdominal wall. Normal osseous structures. CT/CTA Abd/Pelvis W/WO Contrast IMPRESSION: Normal enhanced CT of the abdomen and pelvis. Electronically Signed: Abdi Nichole MD at 11:17 EDT ,
--- NOTE | 2024-01-11 10:28 | ED.VIS.GI ---
HPI HPI - GI History of Present Illness Chief Complaint: GI Bleed Informant: patient and parent Narrative Narrative: 23-year-old male presenting to the emergency room with loose stools and bright red blood per rectum. Patient states that about 2 weeks ago he underwent upper and lower endoscopy. He states biopsies were negative for celiac colitis etc. He states he was told he had internal hemorrhoid. Upper endoscopy was reported as normal. He states that he was diagnosed with pancreatic insufficiency and the stool test. He was taking supplemental enzymes till his GI doctor told him to stop because it was not helping. He continues to have intermittent abdominal pain. Since Tuesday he has had an increase in the amount of blood in the stool. He notes pain in the left lower quadrant as well as epigastric left upper quadrant regions. Family states that the stool looks like beef stew. He denies any fevers. He notes low energy which has been ongoing. Has had prior appendectomy no other abdominal surgery. [facility] Medical History Wears glasses Alcohol use History of steroid therapy Migraine headache Vapes nicotine containing substance History of pain when walking History of edema Stomach ulcer Home Medications ?Medication ?Instructions ?Recorded ?Last Taken ?Type acetaminophen 325 mg tablet (Pain 650 mg PO Q4H PRN pain 07/13/23 07/20/23 History Relief (acetaminophen)) ibuprofen 200 mg capsule 400 mg PO Q8H PRN pain 07/13/23 Unknown History oxycodone 5 mg tablet 5 mg PO Q6H PRN pain 7 days #28 07/21/23 Unknown Rx tabs Allergy/AdvReac Type Severity Reaction Status Date / Time No Known Allergies Allergy Verified 01/11/24 10:11 Surgical History History of esophagogastroduodenoscopy (EGD) Hx of wisdom tooth extraction History of appendectomy Social History Smoking Status: Current every day smoker tobacco type: e-cigarettes ROS ROS ED ROS Narrative Low energy Constitutional Constitutional ED: Denies chills, fever(s) or weight loss Eyes Eyes: Denies change in vision or diplopia ENT ENT ED: Denies ear pain, rhinorrhea or sore throat Cardiovascular Cardiovascular: Denies chest pain, orthopnea, palpitations or racing heartbeat Respiratory/Chest Respiratory/Chest: Denies cough, dyspnea or orthopnea Gastrointestinal Gastrointestinal: Reports abdominal pain, diarrhea and other Details: Bright red blood per rectum ; Denies nausea or vomiting Genitourinary Genitourinary ED: Denies dysuria, hematuria or urinary frequency Musculoskeletal Musculoskeletal: Denies arthralgias, back pain, myalgias or neck pain Integumentary Denies abscess or rash Neurologic Neurologic: Denies headache(s) or weakness Psychiatric Psychiatric: Denies anxiety, depression, suicidal ideation or suicidal thoughts Endocrine Endocrinology: Denies polydipsia, polyphagia or polyuria Allergic/Immunologic Allergic/Immunologic ED: Denies mouth swelling, tongue swelling or urticaria EXAM Physical Exam Const Vital Signs: 01/11/24 10:12 Temperature 97.6 F L Temperature Source Temporal Pulse Rate 74 Respiratory Rate 16 Blood Pressure 118/75 Blood Pressure Mean 89 Pulse Ox 98 Oxygen Delivery Method Room Air Positive well nourished and well developed General Appearance ED: well developed HEENT Reports normocephalic, head/scalp atraumatic and moist mucous membranes Eyes PERRL and EOMs intact bilaterally General Eye ED: Negative for pale conjunctiva Neck no lymphadenopathy, supple and no JVD Resp normal respiratory effort and clear to auscultation bilaterally Cardio regular rate, regular rhythm and no murmurs GI non-distended Auscultation: normoactive bowel sounds Palpation: soft and tender epigastric, LLQ and LUQ; Negative for guarding or rebound tenderness present Narrative: Rectal examination performed with male RICHMOND Tirado. No gross blood on LUIS. There are no masses felt. No anal tags or external hemorrhoids noted. There are fissures seen. Back/Spine no CVA tenderness and normal ROM Extremity normal to inspection General Extremety ED: Negative for edema General Extremity: Negative for edema Neuro oriented x3 and CN's II-XII intact bilaterally Sensorium / Orientation: alert Motor Exam: strength 5/5 throughout Psych mental status grossly normal Mood & Affect: Negative for depressed or tearful Skin no rashes or lesions noted and no wounds MDM MDM MDM Narrative Medical decision making narrative: Differential diagnosis includes but not limited to colitis, AV malformation, diverticulosis, internal/external hemorrhoids anal fissure infectious diarrhea White count 4.7 45.1 neutrophils 42.6 lymphocytes. Hemoglobin 15.9 with a platelet count of 169. BUN of 19 creatinine 0.91. Glucose 102. Normal liver enzymes and lipase. CT angiography of the abdomen shows nothing acute. Rectal exam is negative. Has not had stool specimen today in the department. Patient is hemodynamically stable. Abdomen is nonsurgical in nature. He has follow-up with his clip coater next week. I will write for him did bring a stool specimen back to the hospital for infectious etiology. At this point I do not feel the patient needs to be hospitalized at this time. Return if worsening or concerns. History & Record Review Discussion w/independent historian: Patient and Family Additional record(s) reviewed:: Prior labs Lab Data Attestation: I reviewed the patient's lab results. Labs: Laboratory Results - last 24 hr 01/11/24 10:33 WBC 4.7 RBC 5.52 Hgb 15.9 Hct 47.7 MCV 86.4 MCH 28.8 MCHC 33.3 RDW Std Deviation 39.0 RDW Coeff of Kyle 12.5 Plt Count 169 MPV 9.7 Immature Gran % (Auto) 0.200 Neut % (Auto) 45.1 L Lymph % (Auto) 42.6 H [place] % (Auto) 9.9 Eos % (Auto) 1.3 Baso % (Auto) 0.9 Absolute Neuts (auto) 2.1 Absolute Lymphs (auto) 1.99 Nucleated RBC % 0 Sodium 142 Potassium 4.0 Chloride 111 H Carbon Dioxide 25.0 Anion Gap 6 BUN 19 H Creatinine 0.91 Estim Creat Clear Calc 122.14 Est GFR (MDRD) Af Amer 132 Est GFR (MDRD) Non-Af 109 BUN/Creatinine Ratio 20.9 H Glucose 102 Calcium 8.8 Total Bilirubin 0.60 Direct Bilirubin 0.18 AST 12 L ALT 21 Alkaline Phosphatase 56 Total Protein 7.0 Albumin 3.9 Globulin 3.1 Lipase 24 Radiography Diagnostic Testing: Clinical Impression(s) from Imaging Studies Abdomen/Pelvis CTA 01/11/24 10:27 IMPRESSION: Normal enhanced CT of the abdomen and pelvis. Electronically Signed: Abdi Nichole MD at 11:17 EDT , Discharge Plan Triage Chief Complaint: GI Bleed ED Provider: Bijan Christine Dx/Rx/DC Orders Clinical Impression: Abdominal pain, Acute lower gastrointestinal bleeding Instructions: ED Lower GI Bleeding (Stable) Prescriptions: No Action acetaminophen [Pain Relief (acetaminophen)] 325 mg tablet 650 mg PO Q4H PRN (Reason: pain) ibuprofen 200 mg capsule 400 mg PO Q8H PRN (Reason: pain) oxycodone 5 mg tablet 5 mg PO Q6H PRN (Reason: pain) 7 Days Qty: 28 0RF Primary Care Provider: Kenji Beltrán Referrals: Kenji Beltrán MD [Primary Care Provider] - As Needed Activity Restrictions/Additional Instructions: Please follow-up with your clip coater. Please return to the emergency department if worsening or concerns. You are given a prescription for stool specimen which she may bring to the hospital for evaluation Print Language: [place] Islander Disposition Disposition: Home, Self Care
[2024-01-11 10:40] LABS: Absolute Lymphocyte Count 1.99 X10^3/uL (0.83-4.51); Absolute Neutrophil Count 2.1 X10^3/uL (2.0-7.7); Basophil# 0.04 X10^3/uL; Basophil% 0.9 % (0-1); Eosinophil# 0.06 X10^3/uL; Eosinophils% 1.3 % (0-5); Hematocrit 47.7 % (40-54); Hemoglobin 15.9 g/dL (13.0-16.5); Lymphocyte # 1.99 X10^3/ul (0.83-4.51); Lymphocyte % 42.6 % (19-41); Mean Corp Hgb Conc 33.3 g/dL (32-36); Mean Corpuscular Hgb 28.8 pg (27.0-32.0); Mean Corpuscular Volume 86.4 fL (80-94); Mean Platelet Vol. 9.7 fl (6.2-12.0); Monocyte# 0.46 X10^3/uL; Monocyte% 9.9 % (0-10); NRBC Flagged by Analyzer 0 % (0-5); Neutrophil # 2.11 X10^3/uL (2.7-7.7); Neutrophil % 45.1 % (47-70); Platelet Count 169 K/mm3 (150-450); RBC Distribution Width CV 12.5 % (11.6-14.6); Red Blood Count 5.52 M/mm3 (4.6-6.2); White Blood Count 4.7 K/mm3 (4.4-11.0)
[2024-01-11 11:17] LABS: AST(SGOT) 12 U/L (15-37); Alanine Aminotransfer ALT/SGPT 21 U/L (16-61); Albumin, Serum 3.9 g/dL (3.2-5.0); Alkaline Phosphatase 56 U/L (45-117); Anion Gap 6 (5-15); BUN 19 mg/dL (7-18); BUN/Creat Ratio 20.9 RATIO (10-20); Bilirubin, Direct 0.18 mg/dL (0.00-0.30); Calcium,Total 8.8 mg/dL (8.5-10.1); Chloride 111 mmol/L (98-107); Creatinine, Serum 0.91 mg/dL (0.70-1.30); EST Glomerular Filtration Rate 109 mL/min (>60); Est Glom Filt Rate - Afr Amer 132 mL/min (>60); Estimated Creatinine Clearance 122.14 ml/min; Globulin 3.1 g/dL (2.2-4.2); Glucose 102 mg/dL (74-106); Lipase 24 U/L (13-75); Sodium Level 142 mmol/L (136-145)
[2024-01-11 12:10] VITALS: BP 115/67; PULSE 57; RESP 16; TEMP 36.3; O2SAT 100
== END 2024-01-11 12:11 | disposition home or self-care (01) ==
PROVIDERS: Emergency Provider Emergency Medicine; PCP Family Medicine; Visit Provider Emergency Medicine
DX: K92.2 Gastrointestinal hemorrhage, unspecified (principal); F17.290 Nicotine dependence, other tobacco product, uncomplicated
CPT/HCPCS: 74174; 80048; 80076; 82274; 83690; 85025; 87177; 87209; 87506; 99283; Q9967

== ENCOUNTER → 2024-02-03 | Outpatient (CLI) | payer OTHER, SELFPAY ==
[2024-02-08 16:10] LABS: Pancreatic Elastase, Fecal 758 (>200)
[2024-02-10 18:08] LABS: Calprotectin, Stool 238 ug/g (0-120)
== END | disposition home or self-care (01) ==
LOC: LABSPEC 10:42
PROVIDERS: PCP Family Medicine; Referring Provider Family Medicine; Visit Provider Family Medicine
DX: K29.70 Gastritis, unspecified, without bleeding (principal)
CPT/HCPCS: 82274; 82653; 83993

== ENCOUNTER → 2024-03-27 | Outpatient (CLI) | payer OTHER, SELFPAY ==
--- NOTE | 2024-03-27 09:20 | MRI_ITS ---
MR Enterography Abdomen/Pelvis WO/W Contrast 03/27/2024 11:15 AM COMPARISON: CT 01/11/2024 CLINICAL HISTORY: NAUSEA, ABDOMINAL PAIN TECHNIQUE: Following oral administration of enteric contrast and administration of glucagon, multiplanar T1 and T2 weighted images along with dynamic post-gadolinium images were obtained through the abdomen and pelvis. FINDINGS: GI Tract: Normal caliber. No wall thickening or mucosal hyperenhancement. No stricture, fistula, or obstruction. No drainable fluid collections. Liver: Unremarkable Gallbladder: Unremarkable Spleen: Unremarkable Pancreas: Unremarkable Adrenal Glands: Unremarkable Kidneys: Unremarkable Reproductive: Unremarkable Bladder: Unremarkable Lymphadenopathy: Absent Ascites: Absent Bones: No suspicious lesions MRI/Enterography Abd/Pel IMPRESSION: Normal MR enterography. Electronically Signed: Kenji James MD at 1:04 EDT ,
[2024-03-27 09:50] VITALS: BP 108/72; PULSE 58; RESP 18; O2SAT 99; BMI 25.8
[2024-03-27] MEDS: Glucagon 1 MG/ML Syringe IV (11:29)
[2024-03-27] MEDS: 0.9% Saline Lock 10 ML Syringe IV (11:29)
[2024-03-27 11:49] VITALS: BP 115/70; PULSE 63; RESP 18; O2SAT 99
== END | disposition home or self-care (01) ==
LOC: MRI 09:11
PROVIDERS: PCP Family Medicine; Referring Provider Internal Medicine Gastroenterology; Visit Provider Internal Medicine Gastroenterology
DX: R19.5 Other fecal abnormalities (principal); R11.0 Nausea; R10.84 Generalized abdominal pain
CPT/HCPCS: 74183; 96374; A9575; A4216; J1610

== ENCOUNTER → 2024-06-13 | Outpatient (CLI) | payer OTHER, SELFPAY ==
--- NOTE | 2024-06-13 11:19 | US_ITS ---
STUDY: SUPERFICIAL ULTRASOUND - RIGHT ARM, LEFT LEG REASON FOR EXAM: Male, 23 years old. Palpable lumps TECHNIQUE: A superficial ultrasound was performed with real-time and static dubon-scale imaging. COMPARISON: None. FINDINGS: Sonographic evaluation of the right upper extremity the area of concern shows a well-defined hyperechoic subcutaneous nodule measuring 0.8 x 1.1 x 0.2 cm consistent with a lipoma. No suspicious solid lesion, no fluid collection or evidence of inflammation. IMPRESSION: Well-defined hyperechoic subcutaneous lipoma. No further imaging needed Electronically Signed: Adeel Chisholm MD at 8:13 EST , STUDY: SUPERFICIAL ULTRASOUND - LEFT LEG REASON FOR EXAM: Male, 23 years old. Palpable lump TECHNIQUE: A superficial ultrasound was performed with real-time and static dubon-scale imaging. COMPARISON: None. FINDINGS: Sonographic evaluation of the left lower extremity in the area of concern shows a well-defined hyperechoic subcutaneous nodule measuring 2.2 x 1.6 x 0.9 cm consistent with a lipoma. No suspicious sonographic findings, specifically, no fluid collection or evidence of inflammation US/Ext Non Vasc Limited/Soft Tiss IMPRESSION: Subcutaneous lipoma, no further evaluation needed Electronically Signed: Adeel Chisholm MD at 8:14 EST ,
== END | disposition home or self-care (01) ==
LOC: US 11:18
PROVIDERS: PCP Family Medicine; Referring Provider Dermatology; Visit Provider Dermatology
DX: D48.5 Neoplasm of uncertain behavior of skin (principal); L53.8 Other specified erythematous conditions; R20.8 Other disturbances of skin sensation; R58 Hemorrhage, not elsewhere classified; D17.24 Benign lipomatous neoplasm of skin and subcutaneous tissue of left leg
CPT/HCPCS: 76882

== ENCOUNTER → 2025-03-07 | Outpatient (CLI) | payer OTHER, SELFPAY ==
[2025-03-07 10:29] LABS: Hematocrit 48.3 % (40-54); Hemoglobin 16.1 g/dL (13.0-16.5); Mean Corp Hgb Conc 33.3 g/dL (32-36); Mean Corpuscular Volume 87.0 fL (80-94); Mean Platelet Vol. 9.9 fl (6.2-12.0); Platelet Count 238 K/mm3 (150-450); RBC Distribution Width CV 12.8 % (11.6-14.6); RBC Distribution Width SD 40.2 fl (35.1-43.9); Red Blood Count 5.55 M/mm3 (4.6-6.2); White Blood Count 5.6 K/mm3 (4.4-11.0)
[2025-03-07 10:57] LABS: PTHIN 37 pg/mL (11-61)
[2025-03-07 11:09] LABS: Anion Gap 11 (5-15); BUN 12 mg/dL (4-19); BUN/Creat Ratio 13.5 RATIO (10-20); Calcium,Total 9.3 mg/dL (7.6-11.0); Carbon Dioxide 23.4 mmol/L (21.0-32.0); Chloride 105 mmol/L (98-108); Glucose 114 mg/dL (70-99); Potassium 4.1 mmol/L (3.3-5.1); Vitamin D,25 Hydroxy 22.1 ng/mL (30-100)
== END | disposition home or self-care (01) ==
LOC: LAB 09:38
PROVIDERS: PCP Family Medicine; Referring Provider Student in an Organized Health Care Education/Training Program; Visit Provider Student in an Organized Health Care Education/Training Program
DX: M79.4 Hypertrophy of (infrapatellar) fat pad (principal); S80.02XD Contusion of left knee, subsequent encounter; S83.92XD Sprain of unspecified site of left knee, subsequent encounter
CPT/HCPCS: 36415; 80048; 82306; 83970; 84443; 85027